=== PATIENT | male | born 1980 | race Caucasian/White ===

== ENCOUNTER → 2018-06-04 09:38 | Outpatient (CLI) | payer MEDICARE, MEDICAID, SELFPAY ==
--- NOTE | 2018-06-04 | DI.MRI.S_ITS ---
PROCEDURE: MR KNEE LT WO CON INDICATIONS: Left knee pain and swelling with decreased range of motion TECHNIQUE: Noncontrast sagittal PD fast spin echo and STIR, sagittal 3-D FLASH with fat saturation; coronal T1 spin echo and PD fast spin echo with fat saturation, and axial PD fast spin echo with fat saturation through the knee. COMPARISON: None. FINDINGS: Image quality: There is magnetic susceptibility artifact secondary to patient's postsurgical changes. Menisci: The medial meniscus is diminutive in appearance likely related to prior partial meniscectomy. There is mild radial tearing along the free edge in the remnant posterior horn as well as a small tear along the superior articular surface in the remnant anterior horn. The lateral meniscus demonstrates a complex longitudinal tear which extends to the superior articular surface and free edge in the body with intrasubstance extension into the anterior horn. Cruciate ligaments: There are postsurgical changes status post prior ACL reconstruction. The ACL graft appears intact. There is a small amount of intermediate signal intensity soft tissue adjacent to the graft distally compatible with arthrofibrosis. The posterior cruciate ligament appears intact. Medial structures: The medial collateral ligament appears intact. The semimembranosus tendon insertions and meniscocapsular junction appear intact. Visualized portions of the pes anserinus tendons appear intact without associated bursal fluid collections. Lateral structures: The lateral collateral ligament, long and short heads of the biceps femoris tendon appear intact. The popliteus tendon appears intact. Iliotibial band appears normal. Anterior structures: There is a defect within the calyx and then centrally consistent with prior harvesting of the ACL graft. The remnant patella tendon appears intact with thickening distally. The quadriceps tendon appears intact. Patellar alignment is normal. No femoral trochlear dysplasia or ventral trochlear prominence. Bones and cartilage: No definite bone marrow contusions or fractures. There is extensive magnetic susceptibly artifact within the distal femur and proximal tibia along the surgical tracts. There is mild osteophytosis. In the medial compartment, there is mild to moderate overall cartilage thinning with chondral fissuring along the posterior articular surface of the medial tibial plateau associated with foci of subchondral edema. There is chondral fraying involving greater than 50% of the cartilage along the posterior medial femoral condyle. In the lateral compartment, there is mild superficial chondral fissuring. In the patellofemoral compartment, there is mild superficial chondral fraying also noted. Joint space: There is physiologic knee joint fluid. No Aparicio's cyst. Normal appearing synovial plicae are incidentally noted. IMPRESSION: 1. Postsurgical changes status post ACL reconstruction with intact appearance of the graft. A small amount of soft tissue is noted along the graft distally suggestive of arthrofibrosis. 2. Jqfo-ka-zlcbeudd osteoarthritic changes including areas of chondral fissuring in the medial compartment with subchondral edema. 3. Postsurgical changes status post partial medial meniscectomy with mild tearing in the remnant medial meniscus as described. There is also longitudinal tearing in the lateral meniscus. Dictated by: True Rene M.D. on 06/04/2018 at 17:17 Approved by: True Rene M.D. on 06/04/2018 at 17:24
--- NOTE | 2018-06-04 10:08 | DI.CT.S_ITS ---
PROCEDURE: CT SINUS SCREEN WO CON INDICATIONS: Chronic sinusitis TECHNIQUE: Noncontrast 3.0 mm axial images acquired from the frontal sinuses to the mid-sella, with coronal and sagittal reformats. For radiation dose reduction, the following was used: automated exposure control, adjustment of mA and/or kV according to patient size. COMPARISON: None. FINDINGS: Image quality: Excellent. Mild mucosal thickening noted in the right maxillary sinus. Small right maxillary sinus mucous retention cyst versus polyp is noted. The estimated units are patent. No air-fluid levels are identified. No bony thickening, bone remottling or osseous erosive changes. Nasal septum is deviated to the left. No ade bullosa or paradoxical turbinates. Type II cribriform plate is noted. No variance in the ethmoid roof anatomy. No frontal recess cells. The anterior ethmoid artery notches are protected bilaterally. IMPRESSION: Mild right maxillary sinus mucosal thickening. Small right maxillary sinus mucus retention cyst. Dictated by: Tania Moore MD, PhD on 06/04/2018 at 11:52 Approved by: Tania Moore MD, PhD on 06/04/2018 at 11:54
== END ==
PROVIDERS: Family Provider Orthopaedic Surgery; PCP Family Medicine; Visit Provider Family Medicine
DX: J32.9 Chronic sinusitis, unspecified (principal); J34.1 Cyst and mucocele of nose and nasal sinus; M17.12 Unilateral primary osteoarthritis, left knee; S83.272A Complex tear of lateral meniscus, current injury, left knee, initial encounter; S83.242A Other tear of medial meniscus, current injury, left knee, initial encounter; M25.562 Pain in left knee
CPT/HCPCS: 70486; 73721

== ENCOUNTER → 2018-06-18 12:28 | Outpatient (CLI) | payer MEDICARE, MEDICAID, SELFPAY ==
[2018-06-18 15:21] LABS: Add Manual Diff / Slide Review NO; Basophils Percent Auto 0.8 % (0-2); Hematocrit 44.6 % (41-53); Hemoglobin 15.3 g/dL (13.5-17.5); Lymphocytes Percent Auto 36.8 % (25-40); Mean Corpuscular HGB Conc 34.2 % (30-36); Mean Corpuscular Hemoglobin 30.9 PG (26-34); Mean Corpuscular Volume 90.1 fL (80-100); Monocytes Percent Auto 7.4 % (3-14); Neutrophils Absolute Auto 2600 /uL (3000-5900); Platelet Count 184 X10^3/uL (150-400); Red Blood Cell Count 4.95 X10^6/uL (4.5-5.9); Red Cell Distribution Width 12.6 % (11.6-14.8); White Blood Cell Count 4.8 X10^3/uL (4.5-11.0)
[2018-06-18 15:24] LABS: Alanine Aminotransferase 45 IU/L (21-72); Albumin 4.7 g/dL (3.5-5.0); Albumin Globulin Ratio 1.6 (1.0-2.8); Alkaline Phosphatase 64 U/L (38-126); Aspartate Aminotransferase 45 IU/L (17-59); BUN Creatinine Ratio 12.9 (6-22); Bilirubin Total 0.9 mg/dL (0.2-1.3); Blood Urea Nitrogen 9 mg/dL (9-20); Calcium 9.6 mg/dL (8.4-10.2); Carbon Dioxide 25 mmol/L (22-32); Chloride 105 mmol/L (98-107); Estimated Glomerular Filt Rate > 60.0 mL/min (>60); Glucose 90 mg/dL (70-100); HEMOLYSIS < 15 (0-50); Sodium 142 mmol/L (137-145); Total Protein 7.7 g/dL (6.3-8.2)
[2018-06-18 15:53] LABS: TSH w/ Reflex to FT4 1.67 uIU/mL (0.47-4.68)
== END ==
PROVIDERS: Family Provider Orthopaedic Surgery; PCP Family Medicine; Visit Provider Family Medicine
DX: R25.1 Tremor, unspecified (principal)
CPT/HCPCS: 36415; 80053; 84443; 85025

== ENCOUNTER 2018-07-08 10:34 | Emergency (ER) | payer MEDICARE, MEDICAID, SELFPAY ==
[2018-07-08 10:53] VITALS: BP 135/86; PULSE 72; RESP 18; TEMP 36.5; O2SAT 97
--- NOTE | 2018-07-08 11:50 | DI.RAD.S_ITS ---
PROCEDURE: XR ANKLE LT MIN 3V INDICATIONS: left ankle pain, partial weight bearing. recent cortisone injection TECHNIQUE: 3 views of the ankle were acquired. COMPARISON: [facility], , ANKLE 3 VIEWS LEFT, 10/18/2015, 14:37. FINDINGS: Bones: No fractures or dislocations. Ankle mortise is normally aligned. No suspicious bony lesions. Soft tissues: No tibiotalar joint effusion. Achilles tendon appears normal. IMPRESSION: No acute fractures or dislocations. Dictated by: Corey Oviedo M.D. on 07/08/2018 at 12:11 Approved by: Corey Oviedo M.D. on 07/08/2018 at 12:12
--- NOTE | 2018-07-08 11:55 | PC.NURSE ---
Pt reports receiving cortisone shot into ankle yesterday. reports increased pain in joint with any movement. Pt reports this morning, unable to bare weight on foot. Any movement or touching causes increase in pain.
--- NOTE | 2018-07-08 12:19 | ED.LOWEXIN ---
HPI - Extremity Injury (Lower) <YESSICA Castro - Last Filed: 07/08/18 16:10> General Chief Complaint: Extremity Injury, Lower Stated Complaint: CORITZONE IN ANKLE,CAN'T BEAR WEIGHT Time Seen by Provider: 07/08/18 12:03 Source: patient Mode of arrival: ambulatory Limitations: no limitations History of Present Illness HPI Narrative: Patient presents with chief complaint of left ankle pain. He states he had a left ankle steroid injection by Dr. Carrera yesterday. He states that after his injection he walked about 4 miles. He had pain last night, and then states his pain worsened this morning. He denies any numbness or tingling. He states he has baseline nerve problems, but has not noted anything different. He has not tried anything for pain at home. He later states that he may or may not have? taken ibuprofen x2. He denies any fevers, nausea, vomiting or diarrhea. He states his pain states the ankle. He states it hurts to move his ankle but he can do it. Related Data Home Medications Medication Instructions Recorded Confirmed ibuprofen [Children's Ibuprofen] #0 02/25/18 06/18/18 Allergies Allergy/AdvReac Type Severity Reaction Status Date / Time Benzodiazepines Allergy Mild DELUSIONS Verified 07/08/18 10:58 [BENZODIAZEPINES] paliperidone [PALIPERIDONE] Allergy Mild DYSRTHYMIA Verified 07/08/18 10:58 adhesive [ADHESIVE] Allergy Unknown ask before Verified 07/08/18 10:58 using any kind of tape buspirone [BUSPIRONE] Allergy Unknown Verified 07/08/18 10:58 propoxyphene [From DARVON] Allergy Unknown Verified 07/08/18 10:58 quetiapine [From SEROQUEL] Allergy Unknown Verified 07/08/18 10:58 trazodone [TRAZODONE] Allergy Unknown Verified 07/08/18 10:58 NSAIDS (Non-Steroidal AdvReac Mild STOMACH Verified 07/08/18 10:58 Anti-Inflamma ISSUES [NSAIDS (NON-STEROIDAL ANTI-INFLAMMA] DILUADID Allergy Unknown Uncoded 07/08/18 10:58 Review of Systems <YESSICA Castro - Last Filed: 07/08/18 16:10> Review of Systems GENERAL: Denies chills, fatigue, malaise, fever, sweats. HEENT: Denies sinus pain, ear pain, sore throat, difficulty swallowing, dizziness. RESPIRATORY: Denies dyspnea, cough, wheezing, hemoptysis, sputum. CARDIOVASCULAR: Denies chest pain, palpitations, orthopnea, edema, GASTROINTESTINAL: Denies nausea, vomiting, abdominal pain, diarrhea, constipation, melena. : Denies dysuria, frequency, incontinence, hematuria, urinary retention. MUSCULOSKELETAL: See HPI SKIN: Denies rash, skin lesions, or other NEUROLOGIC: Denies weakness, headache, numbness, change in speech, confusion, seizures, incoordination. PSYCHIATRIC: No concerning psychosocial issues. 12 point review of systems is negative except for those stated above Exam <Tammy Lombardi, ASSISTANT GENERAL MANAGER-BC - Last Filed: 07/08/18 16:10> Narrative Exam Narrative: GENERAL: This is a well-nourished, well-developed patient, lying on stretcher. HEAD: Atraumatic. Normocephalic. No temporal or scalp tenderness. EYES: Pupils equal round and reactive. Extraocular motions intact. No scleral icterus. No injection or drainage. ENT: Nose without bleeding, purulent drainage or septal hematoma. Airway patent. NECK: Trachea midline. No JVD or lymphadenopathy. Supple, nontender, no meningeal signs. CARDIOVASCULAR: Regular rate and rhythm without murmurs, gallops, or rubs. RESPIRATORY: Clear to auscultation. Breath sounds equal bilaterally. No wheezes, rales, or rhonchi. No cough exam GASTROINTESTINAL: Abdomen soft, non-tender, nondistended. No hepato-splenomegaly, or palpable masses. No guarding. EXTREMITIES: Left ankle generalized pain to palpation. +2 pedal pulses. Decreased range of motion all babin. Left foot is warm. Capillary refill less than 2 sec all toes. BACK: Nontender without deformity or crepitance. No flank tenderness. NEURO: AOx3. SKIN: No rash or erythema. Bandages on left foot clean dry and intact. Initial Vital Signs Initial Vital Signs: Vital Signs Temperature 97.7 F 07/08/18 10:53 Pulse Rate 72 07/08/18 10:53 Respiratory Rate 18 07/08/18 10:53 Blood Pressure 135/86 H 07/08/18 10:53 Pulse Oximetry 97 07/08/18 10:53 <Yeni Carlisle DO - Last Filed: 07/09/18 10:34> Initial Vital Signs Initial Vital Signs: Vital Signs Temperature 97.7 F 07/08/18 10:53 Pulse Rate 72 07/08/18 10:53 Respiratory Rate 18 07/08/18 10:53 Blood Pressure 135/86 H 07/08/18 10:53 Pulse Oximetry 97 07/08/18 10:53 Course <YESSICA Castro - Last Filed: 07/08/18 16:10> Orders Ordered: Discontinued Medications Ketorolac Tromethamine (Toradol) 60 mg IM NOW ONE Stop: 07/08/18 12:19 Last Admin: 07/08/18 12:22 Dose: 60 mg Reevaluation(s) Reevaluation #1: Patient is lying in bed. States his pain is improved after the Toradol. Time: 13:45 Vital Signs - 8 hr 07/08/18 10:53 07/08/18 13:34 Temperature 97.7 F Pulse Rate 72 72 Respiratory Rate 18 Blood Pressure 135/86 H Blood Pressure [Right Arm] 109/61 Pulse Oximetry 97 97 <Yeni Carlisle DO - Last Filed: 07/09/18 10:34> Orders Ordered: Discontinued Medications Ketorolac Tromethamine (Toradol) 60 mg IM NOW ONE Stop: 07/08/18 12:19 Last Admin: 07/08/18 12:22 Dose: 60 mg Vital Signs - 8 hr 07/08/18 10:53 07/08/18 13:34 Temperature 97.7 F Pulse Rate 72 72 Respiratory Rate 18 Blood Pressure 135/86 H Blood Pressure [Right Arm] 109/61 Pulse Oximetry 97 97 MDM - Extremity Injury (Lower) <YESSICA Castro - Last Filed: 07/08/18 16:10> Differential Diagnosis Likely ankle sprain and strain, ankle fracture and other (infection) Imaging Data left ankle xray: Radiologist's impression: [address] [address] XRay Report Signed Patient: True Bojorquez MR#: [id number] : 1980 Acct:[id number] Age/Sex: 37 / M Date of Service: 07/08/18 Loc: ED Accession Number: [id number] Procedure: XR ankle LT min 3V Ordering Provider: Tammy Lombardi-BC PROCEDURE: XR ANKLE LT MIN 3V INDICATIONS: left ankle pain, partial weight bearing. recent cortisone injection TECHNIQUE: 3 views of the ankle were acquired. COMPARISON: [facility], , ANKLE 3 VIEWS LEFT, 10/18/2015, 14:37. FINDINGS: Bones: No fractures or dislocations. Ankle mortise is normally aligned. No suspicious bony lesions. Soft tissues: No tibiotalar joint effusion. Achilles tendon appears normal. IMPRESSION: No acute fractures or dislocations. Dictated by: Corey Oviedo M.D. on 07/08/2018 at 12:11 Approved by: Corey Oviedo M.D. on 07/08/2018 at 12:12 MDM Narrative Medical decision making narrative: Patient presents with left ankle pain after having cortisone injection yesterday. He walked 4 miles after his injection and comes to the emergency department pain. He has no signs of infection, stable vital signs, and his pain responded to Toradol. I discussed with him rest ice compression elevation. I discussed with him follow up with primary care or Orthopedics if needed. I did discuss that cortisone injections can worsened pain for the 1st 24-48 hours and that strenuous activity was recommended to be avoided. He had no questions or concerns upon discharge. I discussed follow-up if fever nausea vomiting diarrhea or signs of infection. Discharge Plan Departure Patient Disposition: Home Clinical Impression: Acute left ankle pain Discharge Date/Time: 07/08/18 13:50 Interventions: ED Discharge Assessment Last Done: 07/08/18 13:46 Instructions: How to Use Crutches, How To Perform RICE (Rest, Ice, Compress, Elevate), DI for Ankle Pain, Joint Injection Activity Restrictions/Additional Instructions: Your x-ray of your ankle showed no fracture or problems. We treated her pain with Toradol injection in the emergency department. I would like you to rest, ice and elevate her ankle. I have given you information had use crutches, use ice, generalized ankle pain and instructions regarding joint injections. The instructions regarding joint injections discussed avoiding strenuous activity for 24-48 hours after your injection. It also discusses how your pain may worsen and the 1st 24-48 hours after the injection. I think he may have overdone it yesterday with walking after the shot. I would like you to follow up with primary care provider if worsening or no improvement as well as with orthopedics as previously arranged. Come back to the emergency department for any fever, swelling of your ankle or signs of infection. Prescriptions: No Action ibuprofen [Children's Ibuprofen] 100 mg/5 mL Suspension Qty: 0 RF: 0 Referrals: Maxim Arthur MD [Primary Care Provider] - <Yein Carlisle DO - Last Filed: 07/09/18 10:34> Cosign ED Attending Sultanaature Attestation: I was immediately available in the department for consultation. Documentation has been reviewed. I agree with assessment and plan.
[2018-07-08] MEDS: KETOROLAC 60 MG/2 ML VIAL IM (12:22)
--- NOTE | 2018-07-08 12:27 | ED_ITS ---
HPI - Extremity Injury (Lower) <YESSICA Castro - Last Filed: 07/08/18 16:10> General Chief Complaint: Extremity Injury, Lower Stated Complaint: CORITZONE IN ANKLE,CAN'T BEAR WEIGHT Time Seen by Provider: 07/08/18 12:03 Source: patient Mode of arrival: ambulatory Limitations: no limitations History of Present Illness HPI Narrative: Patient presents with chief complaint of left ankle pain. He states he had a left ankle steroid injection by Dr. Carrera yesterday. He states that after his injection he walked about 4 miles. He had pain last night , and then states his pain worsened this morning. He denies any numbness or tingling. He states he has baseline nerve problems, but has not noted anything different. He has not tried anything for pain at home. He later states that he may or may not have? taken ibuprofen x2. He denies any fevers, nausea, vomiting or diarrhea. He states his pain states the ankle. He states it hurts to move his ankle but he can do it. Related Data Home Medications Medication Instructions Recorded Confirmed ibuprofen [Children's Ibuprofen] #0 02/25/18 06/18/18 Allergies Allergy/AdvReac Type Severity Reaction Status Date / Time Benzodiazepines Allergy Mild DELUSIONS Verified 07/08/18 10:58 [BENZODIAZEPINES] paliperidone [PALIPERIDONE] Allergy Mild DYSRTHYMIA Verified 07/08/18 10:58 adhesive [ADHESIVE] Allergy Unknown ask before Verified 07/08/18 10:58 using any kind of tape buspirone [BUSPIRONE] Allergy Unknown Verified 07/08/18 10:58 propoxyphene [From DARVON] Allergy Unknown Verified 07/08/18 10:58 quetiapine [From SEROQUEL] Allergy Unknown Verified 07/08/18 10:58 trazodone [TRAZODONE] Allergy Unknown Verified 07/08/18 10:58 NSAIDS (Non-Steroidal AdvReac Mild STOMACH Verified 07/08/18 10:58 Anti-Inflamma ISSUES [NSAIDS (NON-STEROIDAL ANTI-INFLAMMA] DILUADID Allergy Unknown Uncoded 07/08/18 10:58 Review of Systems <YESSICA Castro - Last Filed: 07/08/18 16:10> Review of Systems GENERAL: Denies chills, fatigue, malaise, fever, sweats. HEENT: Denies sinus pain, ear pain, sore throat, difficulty swallowing, dizziness. RESPIRATORY: Denies dyspnea, cough, wheezing, hemoptysis, sputum. CARDIOVASCULAR: Denies chest pain, palpitations, orthopnea, edema, GASTROINTESTINAL: Denies nausea, vomiting, abdominal pain, diarrhea, constipation, melena. : Denies dysuria, frequency, incontinence, hematuria, urinary retention. MUSCULOSKELETAL: See HPI SKIN: Denies rash, skin lesions, or other NEUROLOGIC: Denies weakness, headache, numbness, change in speech, confusion, seizures, incoordination. PSYCHIATRIC: No concerning psychosocial issues. 12 point review of systems is negative except for those stated above Exam <Tammy Lombardi, CLINICAL DOCUMENTATION SPECIALIST-BC - Last Filed: 07/08/18 16:10> Narrative Exam Narrative: GENERAL: This is a well-nourished, well-developed patient, lying on stretcher. HEAD: Atraumatic. Normocephalic. No temporal or scalp tenderness. EYES: Pupils equal round and reactive. Extraocular motions intact. No scleral icterus. No injection or drainage. ENT: Nose without bleeding, purulent drainage or septal hematoma. Airway patent. NECK: Trachea midline. No JVD or lymphadenopathy. Supple, nontender, no meningeal signs. CARDIOVASCULAR: Regular rate and rhythm without murmurs, gallops, or rubs. RESPIRATORY: Clear to auscultation. Breath sounds equal bilaterally. No wheezes , rales, or rhonchi. No cough exam GASTROINTESTINAL: Abdomen soft, non-tender, nondistended. No hepato-splenomegaly , or palpable masses. No guarding. EXTREMITIES: Left ankle generalized pain to palpation. +2 pedal pulses. Decreased range of motion all babin. Left foot is warm. Capillary refill less than 2 sec all toes. BACK: Nontender without deformity or crepitance. No flank tenderness. NEURO: AOx3. SKIN: No rash or erythema. Bandages on left foot clean dry and intact. Initial Vital Signs Initial Vital Signs: Vital Signs Temperature 97.7 F 07/08/18 10:53 Pulse Rate 72 07/08/18 10:53 Respiratory Rate 18 07/08/18 10:53 Blood Pressure 135/86 H 07/08/18 10:53 Pulse Oximetry 97 07/08/18 10:53 <Yeni Carlisle DO - Last Filed: 07/09/18 10:34> Initial Vital Signs Initial Vital Signs: Vital Signs Temperature 97.7 F 07/08/18 10:53 Pulse Rate 72 07/08/18 10:53 Respiratory Rate 18 07/08/18 10:53 Blood Pressure 135/86 H 07/08/18 10:53 Pulse Oximetry 97 07/08/18 10:53 Course <YESSICA Castro - Last Filed: 07/08/18 16:10> Orders Ordered: Discontinued Medications Ketorolac Tromethamine (Toradol) 60 mg IM NOW ONE Stop: 07/08/18 12:19 Last Admin: 07/08/18 12:22 Dose: 60 mg Reevaluation(s) Reevaluation #1: Patient is lying in bed. States his pain is improved after the Toradol. Time: 13:45 Vital Signs - 8 hr 07/08/18 10:53 07/08/18 13:34 Temperature 97.7 F Pulse Rate 72 72 Respiratory Rate 18 Blood Pressure 135/86 H Blood Pressure [Right Arm] 109/61 Pulse Oximetry 97 97 <Yeni Carlisle DO - Last Filed: 07/09/18 10:34> Orders Ordered: Discontinued Medications Ketorolac Tromethamine (Toradol) 60 mg IM NOW ONE Stop: 07/08/18 12:19 Last Admin: 07/08/18 12:22 Dose: 60 mg Vital Signs - 8 hr 07/08/18 10:53 07/08/18 13:34 Temperature 97.7 F Pulse Rate 72 72 Respiratory Rate 18 Blood Pressure 135/86 H Blood Pressure [Right Arm] 109/61 Pulse Oximetry 97 97 MDM - Extremity Injury (Lower) <YESSICA Castro - Last Filed: 07/08/18 16:10> Differential Diagnosis Likely ankle sprain and strain, ankle fracture and other (infection) Imaging Data left ankle xray: Radiologist's impression: [address] [address] XRay Report Signed Patient: True Bojorquez MR#: [id number] : 1980 Acct:[id number] Age/Sex: 37 / M Date of Service: 07/08/18 Loc: ED Accession Number: [id number] Procedure: XR ankle LT min 3V Ordering Provider: Tammy Lombardi-BC PROCEDURE: XR ANKLE LT MIN 3V INDICATIONS: left ankle pain, partial weight bearing. recent cortisone injection TECHNIQUE: 3 views of the ankle were acquired. COMPARISON: [facility], , ANKLE 3 VIEWS LEFT, 10/18/2015, 14:37. FINDINGS: Bones: No fractures or dislocations. Ankle mortise is normally aligned. No suspicious bony lesions. Soft tissues: No tibiotalar joint effusion. Achilles tendon appears normal. IMPRESSION: No acute fractures or dislocations. Dictated by: Corey Oviedo M.D. on 07/08/2018 at 12:11 Approved by: Corey Oviedo M.D. on 07/08/2018 at 12:12 MDM Narrative Medical decision making narrative: Patient presents with left ankle pain after having cortisone injection yesterday. He walked 4 miles after his injection and comes to the emergency department pain. He has no signs of infection, stable vital signs, and his pain responded to Toradol. I discussed with him rest ice compression elevation. I discussed with him follow up with primary care or Orthopedics if needed. I did discuss that cortisone injections can worsened pain for the 1st 24-48 hours and that strenuous activity was recommended to be avoided. He had no questions or concerns upon discharge. I discussed follow-up if fever nausea vomiting diarrhea or signs of infection. Discharge Plan Departure Patient Disposition: Home Clinical Impression: Acute left ankle pain Discharge Date/Time: 07/08/18 13:50 Interventions: ED Discharge Assessment Last Done: 07/08/18 13:46 Instructions: How to Use Crutches, How To Perform RICE (Rest, Ice, Compress, Elevate), DI for Ankle Pain, Joint Injection Activity Restrictions/Additional Instructions: Your x-ray of your ankle showed no fracture or problems. We treated her pain with Toradol injection in the emergency department. I would like you to rest, ice and elevate her ankle. I have given you information had use crutches, use ice, generalized ankle pain and instructions regarding joint injections. The instructions regarding joint injections discussed avoiding strenuous activity for 24-48 hours after your injection. It also discusses how your pain may worsen and the 1st 24-48 hours after the injection. I think he may have overdone it yesterday with walking after the shot. I would like you to follow up with primary care provider if worsening or no improvement as well as with orthopedics as previously arranged. Come back to the emergency department for any fever, swelling of your ankle or signs of infection. Prescriptions: No Action ibuprofen [Children's Ibuprofen] 100 mg/5 mL Suspension Qty: 0 RF: 0 Referrals: Maxim Arthur MD [Primary Care Provider] - <Yeni Carlisle DO - Last Filed: 07/09/18 10:34> Cosign ED Attending Sultanaature Attestation: I was immediately available in the department for consultation. Documentation has been reviewed. I agree with assessment and plan.
[2018-07-08 13:34] VITALS: BP 109/61; PULSE 72; O2SAT 97
== END 2018-07-08 13:50 | disposition home or self-care (01) ==
PROVIDERS: Emergency Provider Nurse Practitioner Family; Family Provider Orthopaedic Surgery; PCP Family Medicine
DX: M25.572 Pain in left ankle and joints of left foot (principal)
CPT/HCPCS: 73610; 96372; 99282; 99283; J1885

== ENCOUNTER → 2018-08-17 10:42 | Outpatient (CLI) | payer MEDICARE, MEDICAID, SELFPAY ==
--- NOTE | 2018-08-17 | DI.MRI.S_ITS ---
PROCEDURE: MR ANKLE LT WO CON INDICATIONS: LATERAL LEFT ANKLE PAIN TECHNIQUE: Noncontrast sagittal T1 spin echo and T2 fast spin echo with fat saturation, axial proton density fast spin echo and T2 fast spin echo with fat saturation, coronal T1 spin echo and T2 fast spin echo with fat saturation through the ankle/hindfoot. COMPARISON: [facility], CR, XR ANKLE LT MIN 3V, 07/08/2018, 11:55. FINDINGS: Image quality: Diagnostic. Bones and joints: There is no acute fracture or dislocation identified involving the osseous structures of the the left midfoot or hindfoot. There mild degenerative changes identified at the distal tibiofibular syndesmosis with reactive marrow edema noted involving the adjacent fibula. Minimal degenerative cystic changes noted within the region of the sinus tarsi involving the talus. There mild degenerative changes of the talonavicular joint. No significant joint effusions are evident. The ankle mortise is well-maintained with an osteochondral defect of the tibial plafond toward the talar dome. Medial structures: The deltoid ligament is intact. The spring ligament is also noted to be intact. The tibialis posterior tendon is within normal limits with the exception of a small amount of fluid contained within its corresponding tendon sheath. The flexor hallucis longus and flexor digitorum longus tendons are intact. The posterior tibial nerve to the region of the tarsal tunnel appears to be within normal limits. Lateral structures: The anterior and posterior distal tibiofibular ligaments are mildly heterogeneous and irregular, suggesting scarring from previous partial thickness injury. The anterior and posterior talofibular ligaments are intact. Edema about the posterior talofibular ligament is noted. The calcaneofibular ligament is not well-seen, but probably intact. There is a moderate flattening identified involving the peroneus brevis tendon along the posterior margin of the lateral malleolus with a short segment split longitudinal tear just beyond the tip of the lateral malleolus with corresponding tendinopathy. Mild increased signal is noted involving the peroneus longus tendon without significant tendon. Incidental note is made of an accessory peroneus quartus muscle/tendon, which is intact and normally inserts onto the peroneal tubercle of the lateral calcaneus. Anterior structures: The tibialis anterior, extensor hallucis longus, and extensor digitorum longus tendons appear intact. Posterior and plantar structures: Achilles tendon is intact. Medial and lateral bands of the plantar fascia are of normal thickness. IMPRESSION: 1. Short segment longitudinal split tear and tendinopathy of the peroneus brevis tendon. 2. Mild peroneus longus tendinopathy. 3. Posterior talofibular ligament sprain. 4. Irregularity of the syndesmotic ligaments is suggestive of scarring from previous injury. No full-thickness tears are evident. 5. Mild degenerative changes of the hindfoot joints, as described. 6. Possible mild tibialis posterior tenosynovitis. Dictated by: Jim Retana M.D. on 08/17/2018 at 11:24 Approved by: Jim Retana M.D. on 08/17/2018 at 11:29
== END ==
PROVIDERS: PCP Family Medicine; Visit Provider Orthopaedic Surgery Foot and Ankle Surgery
DX: S96.812A Strain of other specified muscles and tendons at ankle and foot level, left foot, initial encounter (principal); S93.492A Sprain of other ligament of left ankle, initial encounter; M19.072 Primary osteoarthritis, left ankle and foot; M25.572 Pain in left ankle and joints of left foot
CPT/HCPCS: 73721

== ENCOUNTER → 2018-09-16 14:05 | Outpatient (CLI) | payer MEDICARE, MEDICAID, SELFPAY ==
[2018-09-16 14:37] LABS: Add Manual Diff / Slide Review NO; Basophils Percent Auto 0.9 % (0-2); Eosinophils Percent Auto 3.5 % (2-4); Hematocrit 42.3 % (41-53); Hemoglobin 14.3 g/dL (13.5-17.5); Lymphocytes Percent Auto 38.7 % (25-40); Mean Corpuscular HGB Conc 33.8 % (30-36); Mean Corpuscular Hemoglobin 30.5 PG (26-34); Mean Corpuscular Volume 90.1 fL (80-100); Monocytes Percent Auto 7.9 % (3-14); Neutrophils Absolute Auto 1900 /uL (3000-5900); Platelet Count 198 X10^3/uL (150-400); Red Cell Distribution Width 12.8 % (11.6-14.8)
[2018-09-16 15:10] LABS: Alanine Aminotransferase 35 IU/L (21-72); Albumin 4.1 g/dL (3.5-5.0); Albumin Globulin Ratio 1.6 (1.0-2.8); Alkaline Phosphatase 63 U/L (38-126); Aspartate Aminotransferase 30 IU/L (17-59); Bilirubin Total 1.2 mg/dL (0.2-1.3); Bilirubin Unconjugated 1.2 mg/dL (0.0-1.1); Globulin 2.6 g/dL (1.7-4.1); HEMOLYSIS < 15 (0-50); Total Protein 6.7 g/dL (6.3-8.2)
== END ==
PROVIDERS: Family Provider Student in an Organized Health Care Education/Training Program; PCP Student in an Organized Health Care Education/Training Program; Visit Provider Orthopaedic Surgery
DX: K76.0 Fatty (change of) liver, not elsewhere classified (principal)
CPT/HCPCS: 36415; 80076; 85025

== ENCOUNTER 2018-12-03 09:43 | Day surgery (SDC) | payer MEDICARE, MEDICAID, SELFPAY ==
[2018-11-29 12:30] VITALS: BMI 30.2
[2018-12-03] VITALS (9 sets, daily range): BP systolic 104–127; BP diastolic 63–79; PULSE 66–86; RESP 12–16; TEMP 36.3–36.5; O2SAT 94–98; BMI 30.2
--- NOTE | 2018-12-03 10:37 | PM.PREOP ---
Pre-operative Note Interval Note History & Physical reviewed/Exam performed by Physician: Yes Changes to H&P: No
[2018-12-03] MEDS: LACTATED RINGERS 1,000 ML 42 ML IV (10:46)
[2018-12-03] MEDS: CEFAZOLIN 2 GM/100 ML FROZ.PIGGY IV (11:00)
--- NOTE | 2018-12-03 11:33 | SUR.OPER ---
Supine on padded OR bed, head on pillow, arms secured on padded arm boards at <90 degrees abduction, legs uncrossed, safety belt at abdomen, left hip roll, left leg on padded stirrup secured with an lakisha, right leg taped over blankets.
[2018-12-03] MEDS: BUPIVACAINE 0.5% W/ EPI (PF) VIAL 30 ML INJ (13:25)
[2018-12-03] MEDS: fentaNYL 100 MCG/2 ML INJ IV (13:40)
--- NOTE | 2018-12-03 13:40 | PM.OP.1 ---
Operative Date/Time/Diagnoses Date of procedure: 12/03/18 Time of procedure: 11:30 Pre-op diagnosis: 1. impingement syndrome left ankle m25.872 2. Tear peroneus brevis tendon, left s86.312d 3. 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 Peroneus quartus tendon. 5. Peroneal tenosynovitis) Procedure & Clinicians Procedure: 1. Arthroscopy, ankle, debridement, limited, left CPT code 51754 2. Repair, flexor tendon, leg, primary without graft, peroneus brevis tendon CPT code 00841 3. Excision peroneus quartus tendon debridement peroneal tendons/tenosynovitis Same procedure as scheduled: Yes Indications: The patient is a 38-year-old male with a history of left ankle injury and chronic ankle pain refractory to conservative treatments. The patient has had extensive nonoperative treatment including bracing physical therapy, injections. Has a longitudinal split tear of the peroneus brevis tendon on MRI as well as degenerative change within the syndesmosis and scarring. He also appears to have a baskets ligament as well as peroneal tendinosis and a peroneus quartus tendon it that may be causing symptomatic crowding. He has no evidence of gross instability on stress testing. We discussed treatment involving exploration repair of his peroneal tendons as well as arthroscopic surgery to further evaluate his joint debride the syndesmotic area or other causes of soft tissue impingement. Also discussed possible fixation of the syndesmosis if this was found unstable intraoperatively. Patient understands and agrees with the plan. The risks benefits and alternatives to procedure were discussed with the patient detail these include but are not limited to infection, persistence of pain, inability to return to previous level of activity, wound healing problems, hardware failure, need for further surgery, DVT, pulmonary embolism, cardiac and pulmonary complications of general anesthesia up to and including . Informed consent was signed in the office. The patient understands that this would require a 4-6 weeks of nonweightbearing post surgery and that for the 1st 2 weeks after surgery he should elevate above the heart level. He has no history of blood clots or increased risk factors are 4 postoperatively he will have DVT prophylaxis with 325 mg of aspirin daily during his nonweightbearing. Surgeon: Rubi Santoro Click Yes if Unassisted: Yes Anesthesia Type: General and Local Operative Notes Findings: Arthroscopic findings: My evaluation demonstrated good condition of the tibial talar articular surfaces with no evidence of osteochondral lesions. There is mild synovitis anterior laterally and the presence of a low-lying ATFL consistent with the Willard's ligament. This was partially debrided arthroscopically and then finished with a subcutaneous dissection through the lateral peroneal open approach. Additionally probe was placed into the syndesmosis this did not pass through and there is no evidence of instability on intraoperative syndesmosis stress testing. Open peroneal tendon exploration findings: Peroneal sheath was opened her significant tenosynovitis along the peroneal tendons the peroneus longus was in relatively good condition with minimal tendinosis and no ana tears. Mild tenosynovitis was debrided. Additionally the peroneus brevis was found to have a longitudinal split tear at the level of the lateral malleolus that was approximately 3 cm in length and split the tendon roughly in 1/3 and 2/3rds segments. The smaller area of the tear was quite degenerative and was trimmed out and the remainder of the peroneus brevis was then repaired trimmed and tubularized with a 4 0 Maxon suture. Additionally tenosynovitis was debrided and the low-lying muscle belly was debrided as well. There is additional peroneus quartus with a large low-lying muscle belly also present within the peroneal sheath this was felt to be contributing significantly to the patient's crowding and symptoms and therefore was excised. Closure Type: primary Specimen(s): none sent Implants & Drains: None Applied: other (Splint) Estimated Blood Loss (mL): 10 Blood products transfused: none Tourniquet time (min): 90 Procedure in detail: The patient was seen in the preoperative area site of surgery marked informed consent confirmed. The patient was then brought back to the operating room by the anesthesia team he was placed supine on the operative table and general anesthesia was administered. Well-padded thigh tourniquet was placed and all bony prominences were well padded. An SCD was placed on the contralateral leg. Left leg was placed in a well leg christy for the arthroscopy set up. Left lower extremity was then prepped and draped in standard sterile fashion, After 3 step prep. Formal time-out procedure was performed confirming the patient's side and site of surgery and administration of appropriate preoperative antibiotics within 30 min of incision. All were in agreement. Esmarch was used to exsanguinate the lower extremity and the tourniquet was raised to 250 mm of mercury and stayed there for 90 min. Bony landmarks were marked on to the ankle and the portal sites were established. The joint was insufflated with 15 cc of local anesthetic and the noninvasive distractor was set up. Sharp incision through the skin and was taken at the anterior medial portal site and then blunt dissection with a hemostat was used to enter the joint. The scope was then placed confirming intra-articular placement. Next portal site for the anterior lateral portal was established care was taken to palpate the superficial peroneal nerve and avoid this with the portal placement. First a needle was used to localize trajectory for the portal site then Again a sharp knife was used just through the skin and then a blunt hemostat was used to penetrate the joint. And the probe introduced. Diagnostic arthroscopy then took place. There was mild amount of synovitis primarily anterior laterally in the joint. There were no visualized osteochondral defects and the cartilage of the tibia and talus were in otherwise excellent condition. Diagnostic arthroscopy was used to confirm the integrity of the central dome medial shoulder and lateral dome and shoulder as well. There was noted to be avail of low lying ligamentous tissue anterior laterally consistent with a low lying anterior inferior tibial fibular ligament or Willard's ligament and with the synovitis in this area and the patient's symptoms of impingement of this was thought to be likely pathologic. Therefore the shaver was introduced to trim back the Willard's ligament of this was done arthroscopically and then checked and completed during the open approach as well. Next the syndesmosis was evaluated the probe was advanced to the tib-fib space but was not able to pass proximally or widened the joint. A manual stress exam was performed with visualization arthroscopically and no abnormal motion was noted therefore limited debridement of the syndesmosis and synovitic tissue was completed but no further stabilization was undertaken. At this point the instruments were removed from the joint and attention was turned to the open procedure. The leg was removed from the well leg christy and placed supine on the table. Attention was turned to the peroneal tendons. An approximately 10 cm curved incision was taken just posterior to the fibula proximal to distal. This was taken through the skin subcutaneous tissue. Careful flaps were developed. A super periosteal flap was also taken anteriorly over the fibula to the level of the lateral joint and a small arthrotomy was made again visualizing the anterolateral corner of the tibiotalar joint the remainder of the low-lying Willard's ligament was excised using a rongeur this allowed excellent visualization of the tibiotalar joint and no further impingement was visualized with ankle dorsiflexion and plantar flexion. Attention was returned the peroneal tendons. The peroneal tendon sheath was opened leaving careful tissue for repair on either side. This was opened and retracted exposing the peroneal tendons there was significant synovitis along the peroneal tendons and low-lying muscle bellies were demonstrated. Additionally there was a 3rd peroneal tendon peroneus quartus with a low-lying muscle belly that was found within the peroneal tendon sheath. The peroneus longus and peroneus brevis were evaluated. There is some minimal tendinosis of the peroneus longus but no tearing. There was a ana split longitudinal tear in the peroneus brevis tendon corresponding to the area of the lateral malleolus this was approximately 3 cm in length and divided the tendon into a 1/3 part and 2/3 part. The smaller 1/3 part was very tendinotic and frayed. Decision was made to excise this tear and the remainder of the tendon was trimmed and tubularized using a 4 0 Maxon suture that provided excellent the tubularization and repair. Tenosynovitis along all the tendons was trimmed as well as the low lying muscle bellies. Peroneus quartus was felt to be significant cause of stenosis within the groove and therefore was excised. This decompressed the groove very well. The peroneus brevis and longus were then relocated into the groove and the ankle was taken through range of motion. These did not dislocate and glided smoothly. Of note the sural nerve was visualized distally in the wound and protected throughout the case. The tourniquet was released hemostasis achieved. the wound was irrigated then closed in layers with 4 0 Maxon and 2 0 Maxon in the peroneal sheath. 4-0 Monocryl subcutaneously and 3 O nylon in the skin. Additionally 3 O nylon was used close the portal sites from the ankle arthroscopy. Sterile dressing with Xeroform, gauze, Webril, posterior and U slab splint was placed. The patient was awoken from anesthesia and taken to PACU in good condition there were no immediate complications from this procedure. Complications: none Condition: stable Disposition: PACU Plan for aftercare: Patient will be nonweightbearing on his left lower extremity he will elevate above the heart level for at least the 1st 2 weeks after surgery. The patient be nonweightbearing for 6 weeks. He will have oxycodone for pain medication. He will take aspirin 325 mg daily starting postop day 1 for DVT prophylaxis. Patient will follow up in 2 weeks for a wound check, and conversion to a boot.
[2018-12-03] MEDS: OXYCODONE IR 5 MG TABLET PO ×2 (13:59→14:39)
[2018-12-03] MEDS: ONDANSETRON 4 MG/2 ML INJ IV (14:35)
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
== END 2018-12-03 15:06 | disposition home or self-care (01) ==
PROVIDERS: Family Provider Student in an Organized Health Care Education/Training Program; PCP Student in an Organized Health Care Education/Training Program; Visit Provider Orthopaedic Surgery Foot and Ankle Surgery
PROC: (CPT 27658; principal; 2018-12-03 11:15)
DX: M25.872 Other specified joint disorders, left ankle and foot (principal); S86.312D Strain of muscle(s) and tendon(s) of peroneal muscle group at lower leg level, left leg, subsequent encounter; M25.372 Other instability, left ankle
CPT/HCPCS: 27658; 29897; J0690; J2405; J2704; J3010

== ENCOUNTER 2018-12-11 22:08 | Emergency (ER) | payer MEDICARE, MEDICAID, SELFPAY ==
[2018-12-11 22:20] VITALS: BP 153/83; PULSE 85; RESP 20; TEMP 36.6; O2SAT 98; BMI 30.9
--- NOTE | 2018-12-11 23:03 | PC.NURSE ---
Pt verbally contracted for safety. Pt reports chronic suididal thoughts but no intent of carrying them out. Dr Chand notified, pt moved to room 13.
--- NOTE | 2018-12-12 01:23 | DI.CT.S_ITS ---
PROCEDURE: CT HEAD/BRAIN WO CON INDICATIONS: headache, dizzy, visual change TECHNIQUE: Noncontrast 4.5 mm thick angled axial sections acquired from the foramen magnum to the vertex, with coronal and sagittal reformats. For radiation dose reduction, the following was used: automated exposure control, adjustment of mA and/or kV according to patient size. COMPARISON: [facility], CT, BRAIN W/O CONTRAST, 07/18/2012, 22:16. FINDINGS: Image quality: Excellent. CSF spaces: Basal cisterns are patent. No extra-axial fluid collections. Ventricles are normal in size and shape. Brain: No midline shift. No intracranial masses or hemorrhage. Keane-white matter interface is normal. Skull and face: Calvarium and visualized facial bones are intact, without suspicious lesions. Sinuses: Visualized sinuses and mastoids are clear. IMPRESSION: No trauma found, source of reported headache, dizziness and visual changes is not seen. Note: These findings are concordant with the preliminary interpretation. Dictated by: Dre Wright M.D. on 12/12/2018 at 6:54 Approved by: Dre Wright M.D. on 12/12/2018 at 6:57
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
[2018-12-12] MEDS: MECLIZINE HCL 12.5 MG TABLET 50 MG PO (01:29)
[2018-12-12 02:47] VITALS: BP 143/92; PULSE 72; RESP 18; TEMP 36.3; O2SAT 96
== END 2018-12-12 02:51 | disposition home or self-care (01) ==
PROVIDERS: Emergency Provider Emergency Medicine; Family Provider Student in an Organized Health Care Education/Training Program; PCP Student in an Organized Health Care Education/Training Program
DX: R09.81 Nasal congestion (principal); R55 Syncope and collapse
CPT/HCPCS: 70450; 99283; 99284

== ENCOUNTER → 2019-01-07 16:04 | Outpatient (CLI) | payer MEDICARE, MEDICAID, SELFPAY ==
[2019-01-07 17:50] LABS: Alanine Aminotransferase 53 IU/L (21-72); Albumin 4.7 g/dL (3.5-5.0); Albumin Globulin Ratio 1.5 (1.0-2.8); Alkaline Phosphatase 80 U/L (38-126); Aspartate Aminotransferase 38 IU/L (17-59); BUN Creatinine Ratio 12.5 (6-22); Bilirubin Direct 0.2 mg/dL (0.0-0.4); Bilirubin Total 1.4 mg/dL (0.2-1.3); Blood Urea Nitrogen 10 mg/dL (9-20); Calcium 9.6 mg/dL (8.4-10.2); Carbon Dioxide 25 mmol/L (22-32); Chloride 105 mmol/L (98-107); Cholesterol 240 mg/dL (140-199); Estimated Glomerular Filt Rate > 60.0 mL/min (>60); Globulin 3.2 g/dL (1.7-4.1); Glucose 67 mg/dL (70-100); HDL Cholesterol 47 mg/dL (40-60); HEMOLYSIS < 15 (0-50); LDL Cholesterol Calculated 155 mg/dL (<100); Potassium 4.3 mmol/L (3.4-5.1); Sodium 140 mmol/L (137-145); Total Protein 7.9 g/dL (6.3-8.2); Triglycerides 192 mg/dL (35-150)
== END ==
PROVIDERS: Family Provider Student in an Organized Health Care Education/Training Program; PCP Student in an Organized Health Care Education/Training Program; Visit Provider Student in an Organized Health Care Education/Training Program
DX: E55.9 Vitamin D deficiency, unspecified (principal); K76.0 Fatty (change of) liver, not elsewhere classified; Z13.220 Encounter for screening for lipoid disorders
CPT/HCPCS: 36415; 80053; 80061; 82248

== ENCOUNTER → 2019-01-28 14:43 | Outpatient (CLI) | payer MEDICARE, MEDICAID, SELFPAY ==
[2019-01-28 16:27] LABS: Vitamin D 25 Hydroxy (D3) 29.2 ng/mL (30.0-100.0)
[2019-01-31 10:00] LABS: Hepatitis A Antibody IgM NONREACTIVE (NONREACTIVE); Hepatitis Acute Panel Interp 0.01; Hepatitis B Core Antibody IgM NONREACTIVE (NONREACTIVE); Hepatitis B Surface Antigen NONREACTIVE (NONREACTIVE); Hepatitis C Antibody NONREACTIVE
== END ==
PROVIDERS: PCP Student in an Organized Health Care Education/Training Program; Visit Provider Student in an Organized Health Care Education/Training Program
DX: E55.9 Vitamin D deficiency, unspecified (principal); E56.9 Vitamin deficiency, unspecified; K76.0 Fatty (change of) liver, not elsewhere classified
CPT/HCPCS: 36415; 80074; 82306

== ENCOUNTER → 2019-03-22 11:13 | Outpatient (CLI) | payer MEDICARE, MEDICAID, SELFPAY ==
--- NOTE | 2019-03-22 | DI.MRI.S_ITS ---
PROCEDURE: MR LUMBAR SPINE WO CON INDICATIONS: LOW BACK PAIN TECHNIQUE: Noncontrast sagittal T1 spin echo and T2 fast echo, sagittal STIR, axial T1 and T2 fast spin echo through the lumbar spine. In cases with scoliosis, additional coronal T2 fast spin echo may be performed. COMPARISON: [facility], MR, L-SPINE W&WO CONTRAST, 03/18/2017, 11:12. [facility], MR, L-SPINE W&WO CONTRAST, 08/20/2016, 19:08. [facility], MR, L-SPINE WITHOUT CONTRAST, 09/11/2008, 16:47. FINDINGS: Image quality: Diagnostic, with note made of motion artifact. Alignment and Curvature: There is normal bony alignment. Bone Marrow: Marrow is of normal overall signal. No acute vertebral body compression fractures. There is a remote center compression deformity seen at T12, with 50% loss of height centrally. No significant posterior displacement fracture fragments can be seen. Spinal Cord: Conus medullaris terminates at the T12-L1 level. Visualized cord demonstrates normal signal and size. Paraspinous Soft Tissues: No paravertebral masses. T12-L1: Normal appearance. L1-L2: Normal appearance. L2-L3: Postoperative changes are seen, with bilateral pedicle screws and vertical fixation rods. There is associated susceptibility artifact. Mild loss of disc height is seen. Loss of disc signal is seen. Reactive marrow endplate changes are seen, which are hyperintense on T1-weighted and T2-weighted imaging and most consistent with fatty metaplasia (Modic type II changes). Mild generalized disc bulge is seen. Mild bilateral neural foraminal narrowing is seen. No significant central canal narrowing is seen. When comparison is made with the prior examination, these findings are similar. L3-L4: The disc height and disk signal are well-preserved. Moderate facet hypertrophy is seen. No significant neural foraminal or central canal narrowing can be seen. Stable from the prior study. L4-L5: The disc height and disk signal are well-preserved. Minimal disc bulge is seen. Mild facet joint hypertrophy is seen. Mild bilateral neural foraminal narrowing is seen. No significant central canal narrowing is seen. Stable from the prior study. L5-S1: The disc height and disc signal are relatively well-preserved. Mild generalized disc bulge is seen. Mild facet joint hypertrophy is seen. Mild bilateral neural foraminal narrowing is seen. No significant central canal narrowing is seen. No significant change from the prior. IMPRESSION: L2-L3 postoperative changes are seen. Multiple levels of lumbar spine degenerative change are seen, which are not significantly progressed compared to 2017. Dictated by: Jonathan Olivas M.D. on 03/22/2019 at 14:06 Approved by: Jonathan Olivas M.D. on 03/22/2019 at 14:12
== END ==
PROVIDERS: PCP Student in an Organized Health Care Education/Training Program; Visit Provider Physical Medicine & Rehabilitation Pain Medicine
DX: M54.5 Low back pain (principal); M47.816 Spondylosis without myelopathy or radiculopathy, lumbar region; M47.817 Spondylosis without myelopathy or radiculopathy, lumbosacral region
CPT/HCPCS: 72148

== ENCOUNTER → 2019-04-01 16:48 | Outpatient (CLI) | payer MEDICARE, MEDICAID, SELFPAY ==
[2019-04-01 17:55] LABS: Hematocrit 39.6 % (41-53); Hemoglobin 13.6 g/dL (13.5-17.5); Mean Corpuscular HGB Conc 34.3 % (30-36); Mean Corpuscular Hemoglobin 30.8 PG (26-34); Mean Corpuscular Volume 89.8 fL (80-100); Platelet Count 179 X10^3/uL (150-400); Red Blood Cell Count 4.41 X10^6/uL (4.5-5.9); Red Cell Distribution Width 13.1 % (11.6-14.8); White Blood Cell Count 4.3 X10^3/uL (4.5-11.0)
== END ==
PROVIDERS: PCP Student in an Organized Health Care Education/Training Program; Visit Provider Orthopaedic Surgery
DX: Z01.818 Encounter for other preprocedural examination (principal)
CPT/HCPCS: 36415; 85027

== ENCOUNTER 2019-04-05 11:24 | Day surgery (SDC) | payer MEDICARE, MEDICAID, SELFPAY ==
[2019-03-30 07:30] VITALS: BMI 27.6
[2019-04-05] VITALS (16 sets, daily range): BP systolic 109–147; BP diastolic 54–97; PULSE 62–86; RESP 12–26; TEMP 36.1–36.5; O2SAT 92–100; BMI 27.6
--- NOTE | 2019-04-05 | DI.RAD.S_ITS ---
PROCEDURE: XR CERVICAL SPINE 2V OR 3V INDICATIONS: C4-5, C6-7 MOBI C, ACDF TECHNIQUE: 2 view(s) of the cervical spine were acquired. COMPARISON: [facility], , C-SPINE WITHOUT CONTRAST, 01/12/2018, 10:17. FINDINGS: Bones: Immediate postoperative imaging with endotracheal tube in normal position and with interbody disc prosthesis placement at C4-5 and C6-7. Normal alignment is established. Soft tissues: No prevertebral soft tissue swelling. IMPRESSION: Excellent anatomic alignment established after interbody disc prosthesis placement at the C4-5 and C6-7 levels of the cervical spine. Dictated by: Dre Wright M.D. on 04/05/2019 at 16:32 Approved by: Dre Wright M.D. on 04/05/2019 at 16:33
[2019-04-05] MEDS: LACTATED RINGERS 1,000 ML 42 ML IV (12:30)
--- NOTE | 2019-04-05 13:03 | PM.PREOP ---
Pre-operative Note Interval Note History & Physical reviewed/Exam performed by Physician: Yes Changes to H&P: No
--- NOTE | 2019-04-05 13:06 | PM.OP.1 ---
Operative Date/Time/Diagnoses Date of procedure: 04/05/19 Time of procedure: 15:08 Pre-op diagnosis: Cervical disc herniation with radiculopathy Post-op diagnosis: same Procedure & Clinicians Procedure: C4-5 and C6-7 anterior cervical diskectomy with artificial disc replacement Use of microscope Same procedure as scheduled: Yes Indications: [age] year old male with intractable pain from disc herniations. They had failed conservative management and requested operative intervention. Risks and benefits of surgery were discussed and appropriate consents were obtained. Surgeon: Facundo Song Manager Career: [employer] Anesthesia Type: General Operative Notes Findings: None Closure Type: primary Specimen(s): none sent Prosthetic devices, grafts, tissues, transplants, or devices: Twin Mobi-C Blood products transfused: none Procedure in detail: Patient was brought to the operating room and intubated on the table. A time-out was performed. Preoperative antibiotics were given. The neck was prepped and draped in the standard sterile fashion. Using a skin fold, we made a 3 cm oblique incision on the left side. We used Bovie to go through the platysma and then did a standard anterolateral blunt dissection down to the precervical fascia. Fascia was nicked and elevated up. A marker was placed and x-ray was taken for localization. We then subperiosteally elevated up the longus colli muscles. Self-retaining retractors were placed. Blakesburg pins were placed under x-ray guidance to be parallel to the endplates. We then brought in the microscope. A scalpel used to perform an annulotomy. We then used a combination of pituitaries and curettes and Kerrison to perform a complete anterior diskectomy at C4-5. We took down the PLL and used Kerrison to remove any posterior disc material and osteophytes. At the end we could from the nerve hook cephalad caudally and out the foramen and everything was opened. We distracted open with the parallel spreader operator automatic. We then used the horseshoes for sizing. We then used the trials. We then inserted a 15 x 15 x 5 mm size Mobi-C artificial disc replacement under fluoroscopic guidance for positioning. The traction was released and x-ray was checked again. We then went down and skipped over to C6-7. The Blakesburg pins were placed in the self retaining retractors were opened. Again a complete diskectomy was performed with a scalpel, curettes, and Kerrison rongeurs. The PLL was taken down and posterior disc tissue was removed. In the end the nerve could be run throughout and there was no further compression. We trialed and then placed another 17 x 15 x 5 mm Mobi-C artificial disc replacement under fluoroscopic guidance. We then compressed down the Blakesburg pins. The self-retaining retractors and Blakesburg pins were removed and final x-rays taken. The wound was irrigated. There was no bleeding. The carotid was beating nicely. The platysma was closed. The superficial was closed. The skin was closed. A sterile dressing was placed. They were then extubated and brought to recovery room with no complications. Complications: none Condition: stable Disposition: PACU Plan for aftercare: Overnight admission. Soft collar for comfort.
[2019-04-05] MEDS: CEFAZOLIN 2 GM/100 ML FROZ.PIGGY IV ×2 (13:35→21:35)
--- NOTE | 2019-04-05 13:59 | SUR.OPER ---
Supine, head on gel donut. Arms padded with gel pads, tucked at sides, towel roll under shoulders. Safety belt at thigh. Legs uncrossed.
[2019-04-05] MEDS: SODIUM CHLORIDE 0.9% 1,000 ML, GENTAMICIN 80 MG IRR (14:24)
[2019-04-05] MEDS: THROMBIN (RECOMBINANT) 5,000 UNIT VIAL 5000 UNIT TOP (14:28)
[2019-04-05] MEDS: BUPIVACAINE 0.25% W/ EPI 30 ML VIAL 60 ML INJ (14:29)
[2019-04-05] MEDS: MORPHINE 10 MG/ML INJ 2 MG IV ×10 (15:20→16:00)
--- NOTE | 2019-04-05 15:51 | SUR.PREOP ---
carla up multiple doses of dilaudid and reqalized allergy to med- disposed w witness and administered morphine per dr or dayanna
[2019-04-05] MEDS: fentaNYL 100 MCG/2 ML INJ 50 MCG IV ×2 (16:05→16:10)
[2019-04-05] MEDS: OXYCODONE IR 5 MG TABLET PO ×2 (16:15→19:42)
[2019-04-05] MEDS: LACTATED RINGERS 1,000 ML 125 ML IV (17:10)
[2019-04-05] MEDS: MONTELUKAST 10 MG TABLET PO (18:01)
[2019-04-05] MEDS: LORATADINE 10 MG TABLET PO (19:48)
[2019-04-05] MEDS: OXYCODONE IR 5 MG TABLET 10 MG PO (19:57)
[2019-04-05] MEDS: SENNOSIDES 8.6 MG TABLET 17.2 MG PO (21:03)
[2019-04-05] MEDS: DOCUSATE 100 MG CAPSULE PO (21:03)
[2019-04-05] MEDS: MORPHINE 2 MG/ML INJ IV ×2 (21:25→23:51)
--- NOTE | 2019-04-05 22:19 | PC.NURSE ---
Pt A&OX4. 96%RA. impulsive. reports pain with movement 06/18. administered morphine IV 2mg. percolone was ineffective. SBA to the BR. call light in reach. bed alarm active. IVF infusing.
[2019-04-05] MEDS: ONDANSETRON 4 MG/2 ML INJ IV (23:51)
--- NOTE | 2019-04-06 00:54 | PC.NURSE ---
2300- Pt POD#0 C5-C7 diskectomy w/ gauze & tegaderm CDI & soft collar in place. Pain management has been an issue for this patient. Moving 1PA in room w/ BA on; VSS on RA. LR running as ordered into R hand IV; tolerating regular diet at this time. Problems voiding for first few hours postop, voiding x1 since bladder scan. 0000- IV Zofran & Morphine for nausea & pain. Pt having pain w/ swallowing. 0120- Oxycodone given for cont post op pain. Pt cont to eat candy/chips in bed & CO nausea. Instructed pt that nausea might be from the snacks he is eating, he denied wanting to stop eating. 0300- Pt voided 800cc of urine, no need for bladder scan. 0530- Pt had emesis of candy & chips. Pt stopped eating his snacks at this time.
[2019-04-06] MEDS: OXYCODONE IR 5 MG TABLET 10 MG PO ×3 (01:14→09:59)
[2019-04-06] MEDS: LACTATED RINGERS 1,000 ML 125 ML IV (01:16)
[2019-04-06 03:25] VITALS: BP 133/77; PULSE 80; RESP 18; TEMP 36.6; O2SAT 98
[2019-04-06] MEDS: CEFAZOLIN 2 GM/100 ML FROZ.PIGGY IV (06:20)
--- NOTE | 2019-04-06 07:50 | PC.NURSE ---
Addendum entered by Keesha Hidalgo R.N. 04/06/19 10:22: DC - when friend arrived, reviewed dc instructions with pt, scripts provided, belongings gathered, including clothes, shoes, cell phone and youssef, he said he had a 2nd pair black socks, only x1 pr noted, pt had req record copies and after release signed, [facility] provided cd and records, pt refused WC and student nurse accompanied to cafeteria as pt and friend wanted to stop for addl breakfast. Addendum entered by Keesha Hidalgo R.N. 04/06/19 09:14: GI - ate breakfast, then stated some underlying nausea, given 4mg iv zofran. Original Note: AM NOTE - pt is awake, moderately anxious, has a broken tooth r upper where an open cavity is and pt needs to see his dentist lenora today. States the dentist in only works until 11am, discussed discharging, asking if pt can postpone appt, he is going to contact dentist at opening this am and will update, no nausea now, asking for more food at breakfast, +bt and passing some flatus, tawana fluids, some mild discomfort swallowing and advised pt to take in soft foods but pt is ordering extra meneses this am, hx numbness 4th-5th digits r hand to mid forearm and some neuropathy lateral l foot, moving all extremities freely, wearing soft collar, telfa dsg cdi, ra 96%, hr 80, bp 130/76, saline lock this am.
[2019-04-06 08:00] VITALS: BP 130/76; PULSE 82; RESP 18; TEMP 36.4; O2SAT 98
--- NOTE | 2019-04-06 08:09 | PM.PNPO.1 ---
Subjective Date Patient Seen: 04/06/19 Time Patient Seen: 08:09 Interval history: He is doing well. No more pain over the shoulder. Still some tingling and numbness in the right forearm Exam Vital Signs (past 8 hours): - 04/06/19 03:25 Temperature 98 F Pulse Rate 80 Respiratory Rate 18 Blood Pressure 133/77 Pulse Oximetry 98 Oxygen Delivery Method Nasal Cannula Oxygen Flow Rate 1 Const Orientation: alert and oriented x3 Back/Spine/Pelvis Other: CDI. 5/5 motor both upper extremities. Assessment & Plan Post-op Postoperative Procedures Operation Date: 04/05/19 13:45 Actual Procedures Side Surgeon p C4-5, C6-7 Cervical Disc Replacement Facundo Song MD he is doing well. Mobilize with therapy and discharge home today.
[2019-04-06] MEDS: DOCUSATE 100 MG CAPSULE PO (08:40)
[2019-04-06] MEDS: ONDANSETRON 4 MG/2 ML INJ IV (08:43)
[2019-04-06] MEDS: hydrOXYzine pamoate 25 MG CAPSULE PO (08:48)
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
--- NOTE | 2019-04-06 10:06 | OT.IP.TRT ---
Current Diagnoses Cervical disc disorder with radiculopathy, unspecified cervical region (04/05/19) Strain of muscle, fascia and tendon at neck level, subsequent encounter (04/05/19) Surgery Performed Operation Date: 04/05/19 13:45 Actual Procedures p C4-5, C6-7 Cervical Disc Replacement - Facundo Song MD Occupational Therapy Treatment Note M3 OT- IP Subjective and Pain Start: 04/06/19 10:19 Freq: Status: Active Protocol: Document 04/06/19 10:19 DARIANA (Rec: 04/06/19 10:22 DARIANA [id number]) OT- Subjective Occupational Therapy Visit Type Type Administrative Note Visit Start Time 10:00 Visit Stop Time 10:06 Total Visit Minutes 6 Notes OT referral received on this 38 yr old male admitted for C4 -5, C6-7 artificial disc replacements. Pt sitting EOB, already dressed for d/c. Pt has been cleared for d/c by P. T. Provided brief review of C spine precautions during ADLS and methods to adapt dressing and bathing. No further OT services needed. No charge.
--- NOTE | 2019-04-06 11:21 | CM.IDA ---
Initial DCP Assessment Note: Pt is a 38 yo male, resident of [place], now POD#1 from spinal surgery w/ Dr Song . PCP: Dr Russell Payer: Medicare/Medicaid Reviewed chart, pt discussed in multidisciplinary rounds this morning. Therapy has cleared pt for return home and pt has planned for home, DC order from [facility] has already been initiated this morning. No needs expected from DC planning team although will remain available in case this changes today. ALESHIA Rossi Discharge Planning/Care Management CM Discharge Assessment Start: 04/06/19 10:56 Freq: Status: Active Protocol: Document 04/06/19 10:56 SHERIE (Rec: 04/06/19 11:21 SHERIE [id number]) Discharge Planning Assessment Assigned Divisional Merchandising Manager ALESHIA Spear DPOA/Assigned Designee Name Aunt [facility] Contact Information [phone] Advance Directives? Yes Advance Directives on File No History Provided By Patient Prior Living Arrangements House Household Members none Type of transporation used prior to Drives own vehicle admit Independent with ADL's Yes Is patient alert and oriented? Yes Barriers to Discharge No Discharge Plan Home Transportation Arrangement Friend/family Referrals Initiated None needed Whiteboard Updated in Patient Room with Yes name and ext. # of Divisional Merchandising Manager Review Status In Process
== END 2019-04-06 10:30 ==
LOC: OR 11:27 → AC 17:01
PROVIDERS: PCP Student in an Organized Health Care Education/Training Program; Visit Provider Orthopaedic Surgery
PROC: (CPT 22856; principal; 2019-04-05 13:45)
DX: M50.121 Cervical disc disorder at C4-C5 level with radiculopathy (principal); S16.1XXD Strain of muscle, fascia and tendon at neck level, subsequent encounter
CPT/HCPCS: 22856; 22858; 72040; 76000; 94760; 97161; C1776; J0690; J1100; J2270; J2405; J2704; J3010

== ENCOUNTER → 2019-05-13 15:47 | Outpatient (CLI) | payer MEDICARE, MEDICAID, SELFPAY ==
[2019-04-05 16:44] VITALS: BMI 27.6
--- NOTE | 2019-05-13 | DI.MRI.S_ITS ---
PROCEDURE: MR ANKLE LT WO CON INDICATIONS: other specified joint disorder, lt ankle TECHNIQUE: Noncontrast sagittal T1 spin echo and T2 fast spin echo with fat saturation, axial proton density fast spin echo and T2 fast spin echo with fat saturation, coronal T1 spin echo and T2 fast spin echo with fat saturation through the ankle/hindfoot. COMPARISON: [facility], MR, MR ANKLE LT WO CON, 08/17/2018, 11:11. FINDINGS: Image quality: Excellent. Bones and joints: No bone marrow contusions or fractures. No hindfoot coalitions. No osteochondral injuries of the talar dome. No pathologic joint effusions. Medial structures: The posterior tibialis, flexor digitorum longus, and flexor hallucis longus tendons are intact. Minimal fluid adjacent to the posterior tibialis tendon The posterior tibial neurovascular bundle appears normal within the tarsal tunnel, without extrinsic mass effect. The deep layer (anterior and posterior tibiotalar ligaments) and superficial layer (tibionavicular, tibiospring, and tibiocalcaneal ligaments) of the deltoid ligament appear normal. The spring ligament components (superomedial calcaneonavicular, medioplantar oblique calcaneonavicular, and inferoplantar longitudinal ligaments) are intact. Lateral structures: The anterior talofibular, calcaneofibular ligaments appear intact. There is persistent intrasubstance signal change involving the posterior talofibular ligament in keeping with chronic sprain. More superiorly, the anterior and posterior tibiofibular ligaments appear intact, as is the intermalleolar ligament. The tibiofibular syndesmosis is normal in width at 2 mm or less. Previously described longitudinal split tear of the peroneus brevis again noted, grossly unchanged. Unchanged mild peroneus longus tendinopathy. Adjacent bony peroneal tubercle and retrotrochlear prominence are normal in size. The sinus tarsi demonstrates normal fatty signal, without edema, fibrosis, or cyst formation. Visualized sinus tarsi components (cervical ligament, interosseous talocalcaneal ligament, roots of the inferior extensor retinaculum) appear normal. The calcaneonavicular and calcaneocuboid components of the bifurcate ligament appear intact. The dorsal calcaneocuboid ligament appears intact. Anterior structures: The tibialis anterior, extensor hallucis longus, and extensor digitorum longus tendons appear intact. The dorsal talonavicular ligament appears intact. Posterior and plantar structures: Achilles tendon is intact. Medial and lateral bands of the plantar fascia are of normal thickness. No abductor digiti quinti muscle atrophy to suggest Chavez neuropathy. IMPRESSION: Overall, minimal interval change since since 08/17/18. Redemonstration of mild peroneus brevis longitudinal split tear and peroneus longus tendinopathy. Persistent intrasubstance signal change within the posterior talofibular ligament in keeping with chronic sprain. Mild diffuse hindfoot degeneration. Mild posterior tibialis tenosynovitis. Dictated by: Deandre Ramirez M.D. on 05/13/2019 at 16:57 Approved by: Deandre Ramirez M.D. on 05/13/2019 at 17:04
== END ==
PROVIDERS: PCP Student in an Organized Health Care Education/Training Program; Visit Provider Orthopaedic Surgery Foot and Ankle Surgery
DX: M25.872 Other specified joint disorders, left ankle and foot (principal); S96.812A Strain of other specified muscles and tendons at ankle and foot level, left foot, initial encounter; M19.072 Primary osteoarthritis, left ankle and foot; M65.872 Other synovitis and tenosynovitis, left ankle and foot
CPT/HCPCS: 73721

== ENCOUNTER → 2019-05-30 09:47 | Outpatient (CLI) | payer MEDICARE, MEDICAID, SELFPAY ==
[2019-04-05 16:44] VITALS: BMI 27.6
--- NOTE | 2019-05-30 | DI.MRI.S_ITS ---
PROCEDURE: MR SHOULDER RT WO CON INDICATIONS: Pain in right shoulder TECHNIQUE: Noncontrast oblique coronal T2 fast spin echo with fat saturation, oblique sagittal T1 spin echo and T2 fast spin echo with fat saturation, axial T1 spin echo and T2 fast spin echo with fat saturation through the shoulder. COMPARISON: [facility], , SHOULDER WITHOUT CONTRAST, 06/09/2017, 9:20. FINDINGS: Image quality: Excellent. Rotator cuff: Tendinosis and low to moderate grade articular and bursal surface partial-thickness tear involving distal supraspinatus is seen. Distal infraspinatus tendinosis is noted. Distal subscapularis tendon is intact. No full-thickness rotator cuff tendon rupture. Sagittal images demonstrate no significant muscle atrophy. Bones and bursae: No bone marrow contusions or fractures. Mild acromioclavicular joint osteoarthritis is seen with joint space narrowing, subchondral sclerosis and cyst formation. Trace amount of fluid within subacromial subdeltoid bursa is seen. Capsule and soft tissues: In the absence of intra-articular contrast, there is suggestion of superior anterior labral tear extending from 12 to 2:00 position. The glenohumeral ligaments appear intact. Tendinosis involving proximal intra-articular portion of long head of biceps tendon is seen. The rotator interval appears normal, without fibrosis. The coracohumeral ligament is normal in thickness. IMPRESSION: 1. Tendinosis and low to moderate grade articular and bursal surface partial-thickness tear involving distal supraspinatus extending to the musculotendinous junction. Distal infraspinatus tendinosis. No full-thickness rotator cuff tendon rupture. 2. Finding is suggestive of superior anterior labral tear at the 12 to 2:00 position. 3. Proximal long head of biceps tendinosis. Mild acromioclavicular joint osteoarthritis. Dictated by: Andres Cadet M.D. on 05/30/2019 at 13:22 Approved by: Andres Cadet M.D. on 05/30/2019 at 13:27
== END ==
PROVIDERS: PCP Student in an Organized Health Care Education/Training Program; Visit Provider Orthopaedic Surgery
DX: M25.511 Pain in right shoulder (principal); M19.011 Primary osteoarthritis, right shoulder; M75.21 Bicipital tendinitis, right shoulder
CPT/HCPCS: 73221

== ENCOUNTER 2019-10-03 13:16 | Day surgery (SDC) | payer MEDICARE, MEDICAID, SELFPAY ==
[2019-04-05 16:44] VITALS: BMI 27.6
[2019-08-05 15:19] VITALS: BMI 29.7
[2019-10-03] VITALS (8 sets, daily range): BP systolic 118–136; BP diastolic 72–88; PULSE 68–94; RESP 12–24; TEMP 36.1–36.3; O2SAT 93–98; BMI 29.7
[2019-10-03] MEDS: LACTATED RINGERS 1,000 ML 42 ML IV ×2 (14:00→16:23)
[2019-10-03] MEDS: CEFAZOLIN 2 GM/100 ML FROZ.PIGGY IV (14:07)
--- NOTE | 2019-10-03 14:22 | PM.PREOP ---
Pre-operative Note Interval Note History & Physical reviewed/Exam performed by Physician: Yes Changes to H&P: No
[2019-10-03] MEDS: fentaNYL 100 MCG/2 ML INJ 50 MCG IV ×2 (14:46→14:50)
[2019-10-03] MEDS: MIDAZOLAM 2 MG/2 ML VIAL IV ×2 (14:46→14:50)
--- NOTE | 2019-10-03 15:03 | SUR.PREOP ---
Block start time [1444] . Monitoring initiated and maintained throughout procedure. Oxygen and medications given per anesthesiologist instructions. Patient remained stable throughout procedure, no adverse reactions noted. Block end time [1452].
--- NOTE | 2019-10-03 15:08 | SUR.PREOP ---
1506 to OR in stable condition.
--- NOTE | 2019-10-03 15:46 | SUR.OPER ---
Lateral on padded OR bed with rocha bag positioner, head on pillow, gel axillary roll in place, bottom leg bent with gel pad under knee to foot, upper leg straight and supported with pillows. Operative arm secured in shoulder positioning suspension device. non-operative arm secured on padded arm board. Safety belt at hip, tape over blanket securing lower legs.
[2019-10-03] MEDS: BUPIVACAINE 0.5% W/ EPI (PF) VIAL 30 ML INJ (15:59)
[2019-10-03] MEDS: SODIUM CHLORIDE IRRIG SOLUTION 3,000 ML, EPINEPHrine 1 MG IRR (16:00)
--- NOTE | 2019-10-03 16:49 | PM.OP.1 ---
Operative Date/Time/Diagnoses Date of procedure: 10/03/19 Time of procedure: 16:30 Pre-op diagnosis: 1. Acromioclavicular osteoarthritis, right shoulder 2. Right shoulder biceps tendinitis 3. Right carpal tunnel syndrome Post-op diagnosis: other (1. Right shoulder acromioclavicular osteoarthritis 2. Right shoulder type 1 SLAP lesion 3. Right carpal tunnel syndrome) Procedure & Clinicians Procedure: 1. Right shoulder arthroscopic distal clavicle excision 2. Right shoulder debridement of a type 1 SLAP lesion 3. Right carpal tunnel release Same procedure as scheduled: Yes Indications: Patient is a 39-year-old gentleman whose had persistent right shoulder pain with an MRI indicative of reactive edema around the AC joint. He also has had symptoms suggestive of biceps tendinitis. He also has symptoms of carpal tunnel and a confirmatory EMG/NCV. After discussion the risks benefits and alternatives he has agreed to right shoulder arthroscopy and a right carpal tunnel release. Risks discussed included but were not limited to: Failure to improve, stiffness, infection, nerve damage, deep venous thrombosis, pulmonary embolism, stroke, myocardial infarction, permanent paralysis and . Surgeon: Hayden Lane Click Yes if Unassisted: Yes Anesthesia Type: General, Peripheral nerve block and Local Operative Notes Findings: 1. Normal glenohumeral cartilage 2. Fraying of the superior glenoid labrum or type 1 SLAP lesion 3. Middle glenohumeral ligament originating from the superior labrum consistent with a ?Hearne complex? 4. Intact subscapularis 5. Intact biceps and biceps insertion with no signs of significant damage or inflammation 6. Intact supraspinatus 7. Intact infraspinatus 8. Normal axillary pouch 9. Normal rotator cuff from the bursal surface 10. Normal-appearing acromial surface with no fraying (no impingement lesion) 11. Acromioclavicular joint with obvious arthritic change. 12. Full range of motion and no evidence for pathologic laxity on shoulder examination 13. Compressed but not iatrogenically damaged median nerve. Closure Type: primary Specimen(s): none sent Prosthetic devices, grafts, tissues, transplants, or devices: None Estimated Blood Loss (mL): 10 Blood products transfused: none Procedure in detail: The patient was seen in the preoperative area where identified the right shoulder and right wrist as the operative sites and both of these were marked with my initials. He received preoperative antibiotics and underwent an interscalene block. He was taken to the operating room and placed on the operating room table in the supine position where he underwent the induction of a general anesthetic. His right shoulder was examined under anesthesia with result given above. He was then carefully repositioned the left lateral decubitus position with care being taken to maintain his spine in a neutral position. All pressure points were well padded. He was stabilized in this position with the rocha bag. An axillary roll was placed. The right arm was prepared from the fingertips to the base the neck with ChloraPrep in the usual fashion and draped through sterile drapes. Subcutaneous landmarks were outlined on the skin with marking pen. Portal sites were selected. Posterior portal was created for the arthroscope and diagnostic arthroscopy ensued with result given above. An anterior portal was created and a shaver inserted to debride the type 1 SLAP lesion. The arthroscope was then withdrawn and placed in the subacromial space. Bursectomy was performed for visualization. There was no evidence of any significant impingement. The distal 8-10 mm of clavicle was excised due to the preoperative pain and MRI findings of edema there. Findings of arthritis were confirmed. At this point all arthroscopic equipment was removed, the wounds were closed with 4 0 Monocryl and Steri-Strips. The subcutaneous tissues were injected with 10 mL of 0.5 % Marcaine and an additional 10 mL of the same solution was injected into the subacromial bursa. The wounds were dressed with sterile 4x4s, an ABD and Tegaderm. The patient was then carefully repositioned in the supine position after lifting him and removing the rocha bag. A tourniquet was placed around the proximal right arm. The right arm was prepared for the fingertips to the tourniquet with ChloraPrep in usual fashion draped with sterile drapes. The arm was elevated and exsanguinated with an Esmarch bandage the tourniquet inflated to 250 mm of mercury. An approximately 2.5 cm incision was created in line with the ring finger metacarpal between Bertrand's line and the wrist crease. The subcutaneous tissues were dissected to the palmar fascia which was split distally and the distal and of the transverse carpal ligament identified. A closed Pérez scissors was placed beneath the ligament to act as a nerve protector in the ligament was transected using a 15 scalpel blade. Metzenbaum scissors were then used to propagate this split into the forearm fascia with care being taken to maintain them to the ulnar side of the palmaris longus during this maneuver. A retractor was then placed in the proximal wound and the median nerve examined and found to be compressed but not iatrogenically damaged. The wound was then closed with interrupted horizontal 4 O nylon mattress sutures. An additional 4 mL of 0.5% Marcaine was injected in the subcutaneous soft tissues for postoperative pain control here. Dressings of Xeroform, sterile 4x4s and 3 in Garry wrap were applied. The tourniquet was deflated during dressing placement for total tourniquet time of 10 minutes. Patient's arm was placed in a sling and he was transferred to the recovery room in good condition having tolerated the procedure well. Complications: none Post-operative Condition: stable Disposition: PACU Plan for aftercare: The patient will be maintained on a standard arthroscopic subacromial decompression protocol. His sutures will be removed from the carpal tunnel site in 2 weeks. He will be discharged later this afternoon.
[2019-10-03] MEDS: hydrOXYzine pamoate 25 MG CAPSULE PO (17:00)
[2019-10-03] MEDS: OXYCODONE IR 5 MG TABLET PO (17:17)
--- NOTE | 2019-10-03 17:58 | SUR.PHASEII ---
Pt reported anxiety in pacu but that it resolved quickly. Dr. Marrero was notified. recommended Vistaril, which was given.
== END 2019-10-03 17:47 | disposition home or self-care (01) ==
PROVIDERS: Family Provider Student in an Organized Health Care Education/Training Program; PCP Student in an Organized Health Care Education/Training Program; Visit Provider Orthopaedic Surgery
PROC: (CPT 23120; principal; 2019-10-03 15:15)
PROC: (CPT 64721; 2019-10-03 15:15)
DX: S43.431A Superior glenoid labrum lesion of right shoulder, initial encounter (principal); M19.011 Primary osteoarthritis, right shoulder; M75.81 Other shoulder lesions, right shoulder; M75.21 Bicipital tendinitis, right shoulder; G56.01 Carpal tunnel syndrome, right upper limb; G89.18 Other acute postprocedural pain
CPT/HCPCS: 29824; 64721; 64415; 64450; J0171; J0690; J2250; J3010

== ENCOUNTER → 2020-07-05 13:31 | Outpatient (CLI) | payer MEDICARE, MEDICAID, SELFPAY ==
[2019-10-17 11:39] VITALS: BMI 27.6
--- NOTE | 2020-07-05 | DI.MRI.S_ITS ---
PROCEDURE: MR SHOULDER RT W CON INDICATIONS: RIGHT SHOULDER BURSITIS TECHNIQUE: After the administration of 12 mL of dilute intra-articular Gadolinium contrast, oblique coronal T1 and T2 spin echo with fat saturation, oblique sagittal T1 spin echo with and without fat saturation, oblique sagittal T2 fast spin echo with fat saturation, axial T1 spin echo with fat saturation through the shoulder. COMPARISON: [facility], CR, XR SHOULDER 2+ VIEWS RIGHT, 11/04/2019, 16:50. FINDINGS: Image quality: Excellent. Rotator cuff: Mild supraspinatus tendinopathy. Low-grade bursal surface fraying. Infraspinatus and teres minor appear intact. Subscapularis demonstrates presumed post-injection related sequela. No atrophy of the rotator cuff muscles. Bones and bursae: No bone marrow contusions or fractures. Moderate acromioclavicular joint degeneration. There is probably chronic superior displacement of the lateral clavicle relative the acromion in keeping with longstanding AC separation Acromion demonstrates conventional anatomy, without an os acromiale. Mild subacromial-subdeltoid bursitis. Capsule and soft tissues: Labrum: Prominent superior sublabral sulcus, anatomic variant. Chronic appearing posterior labral tear with subsequent fibrosis and scarring. There is adjacent segmental degenerative sclerosis and spurring in the glenoid. Angelica complex noted with thickening of the middle glenohumeral ligament and diminutive appearance of the anterior superior labral segment, anatomic variant. Long head of the biceps tendon intact. The rotator interval appears normal, without fibrosis. Coracohumeral ligament intact. IMPRESSION: Mild supraspinatus tendinopathy with low-grade bursal surface fraying Chronic posterior labral tear and/or superimposed degeneration. Superior displacement of the lateral clavicle in keeping with AC separation however this demonstrates chronic MR appearance. Dictated by: Deandre Ramirez M.D. on 07/05/2020 at 16:27 Approved by: Deandre Ramirez M.D. on 07/05/2020 at 16:39
--- NOTE | 2020-07-05 | DI.RAD.S_ITS ---
PROCEDURE: FL SHOULDER INJECTION MR/CT RT INDICATIONS: RIGHT SHOULDER BURSITIS TECHNIQUE: The indications, alternatives, benefits, risks, and complications of the procedure were explained to the patient. Written informed consent was obtained and placed in the chart. The shoulder was examined fluoroscopically and a site for needle placement chosen for entry into the glenohumeral joint from an anterior approach. The skin was prepped and draped in a sterile fashion, and 1% lidocaine infiltrated from skin down to joint capsule. A spinal needle was inserted into the glenohumeral joint, and a small amount of iodinated contrast media injected to confirm intra-articular placement of the needle tip. This was followed by approximately 12 mL dilute solution of a gadolinium containing MR contrast agent. The needle was removed and a dressing was applied. The patient was given postprocedural instructions and sent to the MR suite for MR imaging. FINDINGS: A single fluoroscopic spot image demonstrates intra-articular location of injected iodinated contrast. IMPRESSION: Successful fluoroscopically guided administration of dilute Gadolinium solution into the shoulder joint for MR arthrogram. Dictated by: Dre Wright M.D. on 07/05/2020 at 14:48 Approved by: Dre Wright M.D. on 07/05/2020 at 14:49
== END ==
PROVIDERS: Family Provider Student in an Organized Health Care Education/Training Program; PCP Student in an Organized Health Care Education/Training Program; Referring Provider Orthopaedic Surgery; Visit Provider Orthopaedic Surgery
DX: M75.51 Bursitis of right shoulder (principal); M19.011 Primary osteoarthritis, right shoulder
CPT/HCPCS: 23350; 73222; 77002

== ENCOUNTER → 2020-07-24 09:10 | Outpatient (CLI) | payer MEDICARE, MEDICAID, SELFPAY ==
[2019-10-17 11:39] VITALS: BMI 27.6
--- NOTE | 2020-07-24 | DI.MRI.S_ITS ---
PROCEDURE: MR SHOULDER LT W CON INDICATIONS: STRAIN OF LEFT SHOULDER TECHNIQUE: After the administration of 12 mL of dilute intra-articular Gadolinium contrast, oblique coronal T1 and T2 spin echo with fat saturation, oblique sagittal T1 spin echo with and without fat saturation, oblique sagittal T2 fast spin echo with fat saturation, axial T1 spin echo with fat saturation through the shoulder. COMPARISON: [facility], MR, MR SHOULDER RT W CON, 07/05/2020, 14:42. FINDINGS: Image quality: Excellent. Rotator cuff: Partial thickness bursal sided tear of the supraspinatus tendon involving the critical zone. Infraspinatus and teres minor tendons appear intact. Subscapularis mild tendinopathy and thickening. No atrophy of the rotator cuff muscles. Mild fatty infiltration of the supraspinatus and infraspinatus muscles. Bones and bursae: No bone marrow contusions or fractures. Moderate hypertrophic acromioclavicular joint degeneration. Acromion demonstrates conventional anatomy, without an os acromiale. Mild subacromial-subdeltoid bursitis. Capsule and soft tissues: Labrum: Mild blunting and amorphous signal involving the posterior labrum probably degenerative fraying. No discrete intrasubstance gadolinium signal intensity. Mild fraying of the superior labrum which may be age-appropriate. There is also possible glenoid cartilage undercutting (anatomic variant). Long head of the biceps tendon intact. The rotator interval appears normal, without fibrosis. Coracohumeral ligament intact. IMPRESSION: Partial-thickness bursal sided tear of the supraspinatus tendon. Subscapularis tendinopathy and mild thickening Mild subacromial-subdeltoid bursitis Chronic appearing mild degenerative fraying of the posterior labrum. Dictated by: Deandre Ramirez M.D. on 07/24/2020 at 11:15 Approved by: Deandre Ramirez M.D. on 07/24/2020 at 11:23
--- NOTE | 2020-07-24 | DI.RAD.S_ITS ---
PROCEDURE: FL SHOULDER INJECTION MR/CT LT INDICATIONS: STRAIN OF LEFT SHOULDER TECHNIQUE: The indications, alternatives, benefits, risks, and complications of the procedure were explained to the patient. Written informed consent was obtained and placed in the chart. The shoulder was examined fluoroscopically and a site for needle placement chosen for entry into the glenohumeral joint from an anterior approach. The skin was prepped and draped in a sterile fashion, and 1% lidocaine infiltrated from skin down to joint capsule. A spinal needle was inserted into the glenohumeral joint, and a small amount of iodinated contrast media injected to confirm intra-articular placement of the needle tip. This was followed by approximately 12 mL dilute solution of a gadolinium containing MR contrast agent. The needle was removed and a dressing was applied. The patient was given postprocedural instructions and sent to the MR suite for MR imaging. FINDINGS: A single fluoroscopic spot image demonstrates intra-articular location of injected iodinated contrast. IMPRESSION: Successful fluoroscopically guided administration of dilute Gadolinium solution into the shoulder joint for MR arthrogram. Dictated by: Deandre Ramirez M.D. on 07/24/2020 at 11:26 Approved by: Deandre Ramirez M.D. on 07/24/2020 at 11:27
== END ==
PROVIDERS: Family Provider Student in an Organized Health Care Education/Training Program; PCP Student in an Organized Health Care Education/Training Program; Referring Provider Orthopaedic Surgery; Visit Provider Orthopaedic Surgery
DX: S46.012A Strain of muscle(s) and tendon(s) of the rotator cuff of left shoulder, initial encounter (principal); M75.52 Bursitis of left shoulder; X58.XXXA Exposure to other specified factors, initial encounter
CPT/HCPCS: 23350; 73222; 77002

== ENCOUNTER 2020-10-27 13:18 | Emergency (ER) | payer MEDICARE, MEDICAID, SELFPAY ==
[2019-10-17 11:39] VITALS: BMI 27.6
[2020-10-27 13:33] VITALS: BP 133/72; PULSE 82; RESP 16; TEMP 36.8; O2SAT 99; BMI 35.2
[2020-10-27 14:01] LABS: COVID19 -Nasal RAPID Negative (Negative)
[2020-10-27 14:34] VITALS: BP 125/77; PULSE 85; RESP 16; TEMP 36.8; O2SAT 96
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
== END 2020-10-27 14:33 | disposition home or self-care (01) ==
PROVIDERS: Emergency Medicine; Emergency Provider Nurse Practitioner Family; Family Provider Student in an Organized Health Care Education/Training Program; PCP Student in an Organized Health Care Education/Training Program
DX: Z20.828 Contact with and (suspected) exposure to other viral communicable diseases (principal)
CPT/HCPCS: 87635; 99281; 99282

== ENCOUNTER 2020-11-03 11:38 | Emergency (ER) | payer MEDICARE, MEDICAID, SELFPAY ==
[2019-10-17 11:39] VITALS: BMI 27.6
[2020-11-03 12:02] VITALS: BP 122/75; PULSE 70; RESP 14; TEMP 36.4; O2SAT 98; BMI 34.4
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
[2020-11-03 15:18] LABS: COVID19 -Nasal RAPID Negative (Negative)
== END 2020-11-03 14:51 | disposition home or self-care (01) ==
PROVIDERS: Emergency Provider Emergency Medicine; Family Provider Student in an Organized Health Care Education/Training Program; PCP Student in an Organized Health Care Education/Training Program
DX: Z20.828 Contact with and (suspected) exposure to other viral communicable diseases (principal)
CPT/HCPCS: 87635; 99281; 99282

== ENCOUNTER → 2023-10-13 10:22 | Outpatient (CLI) | payer MEDICARE, MEDICAID, SELFPAY ==
[2019-10-17 11:39] VITALS: BMI 27.6
[2023-10-13 12:24] LABS: Alanine Aminotransferase 55 IU/L (<50); Albumin 4.3 g/dL (3.5-5.0); Albumin Globulin Ratio 1.5 (1.0-2.8); Alkaline Phosphatase 66 U/L (38-126); Aspartate Aminotransferase 39 IU/L (17-59); BUN Creatinine Ratio 12.9 (6-22); Bilirubin Total 0.9 mg/dL (0.2-1.3); Blood Urea Nitrogen 9 mg/dL (9-20); Calcium 9.5 mg/dL (8.4-10.2); Carbon Dioxide 21 mmol/L (22-32); Chloride 108 mmol/L (98-107); Cholesterol 205 mg/dL (140-199); Estimated Glomerular Filt Rate > 60 mL/min (>60); Globulin 2.9 g/dL (1.7-4.1); Glucose 89 mg/dL (70-100); HDL Cholesterol 42 mg/dL (40-60); HEMOLYSIS < 15 (0-50); LDL Cholesterol Calculated 126 mg/dL (<100); Potassium 4.3 mmol/L (3.4-5.1); Sodium 138 mmol/L (137-145); Total Protein 7.2 g/dL (6.3-8.2); Triglycerides 184 mg/dL (35-150)
== END ==
PROVIDERS: Family Provider Student in an Organized Health Care Education/Training Program; PCP Family Medicine; Referring Provider Pediatrics; Visit Provider Pediatrics
DX: R79.89 Other specified abnormal findings of blood chemistry (principal); K76.0 Fatty (change of) liver, not elsewhere classified; E78.00 Pure hypercholesterolemia, unspecified
CPT/HCPCS: 36415; 80053; 80061

== ENCOUNTER 2023-12-09 14:22 | Emergency (ER) | payer MEDICARE, MEDICAID, SELFPAY ==
[2019-10-17 11:39] VITALS: BMI 27.6
[2023-12-09 14:35] VITALS: BP 143/95; PULSE 95; RESP 18; TEMP 36.9; O2SAT 98; BMI 35.9
[2023-12-09 15:10] LABS: COVID19 -Nasal RAPID POSITIVE (Negative)
[2023-12-09] MEDS: KETOROLAC 30 MG/ML VIAL IM (15:42)
[2023-12-09 15:44] VITALS: BP 133/81; PULSE 84; O2SAT 97
--- NOTE | 2023-12-09 15:45 | PC.NURSE ---
patient was asked if he had allergies to medications and he stated Not to toradol. The provider was also asked about the patient allergy on file to naproxen and to tobacco complications. She okaayed the IM 30 mg of T-dol for this patient prior to admin.
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
== END 2023-12-09 15:51 | disposition home or self-care (01) ==
PROVIDERS: Emergency Medicine; Emergency Provider Physician Assistant; PCP Family Medicine
DX: U07.1 COVID-19 (principal)
CPT/HCPCS: 87635; 96372; 99283; J1885

== ENCOUNTER → 2023-12-31 08:55 | Outpatient (CLI) | payer MEDICARE, MEDICAID, SELFPAY ==
[2019-10-17 11:39] VITALS: BMI 27.6
[2023-12-31 10:47] LABS: Hemoglobin A1C% w Est Avg Glu 5.2 % (4.0-6.0)
[2023-12-31 10:48] LABS: Alanine Aminotransferase 48 IU/L (<50); Albumin 4.1 g/dL (3.5-5.0); Albumin Globulin Ratio 1.4 (1.0-2.8); Alkaline Phosphatase 70 U/L (38-126); Aspartate Aminotransferase 39 IU/L (17-59); BUN Creatinine Ratio 15.8 (6-22); Blood Urea Nitrogen 12 mg/dL (9-20); Calcium 9.2 mg/dL (8.4-10.2); Carbon Dioxide 24 mmol/L (22-32); Chloride 106 mmol/L (98-107); Cholesterol 215 mg/dL (140-199); Estimated Glomerular Filt Rate > 60 mL/min (>60); Globulin 2.9 g/dL (1.7-4.1); Glucose 101 mg/dL (70-100); HDL Cholesterol 44 mg/dL (40-60); HEMOLYSIS < 15 (0-50); LDL Cholesterol Calculated 136 mg/dL (<100); Potassium 4.1 mmol/L (3.4-5.1); Sodium 139 mmol/L (137-145); Triglycerides 174 mg/dL (35-150)
== END ==
LOC: LAB 08:57
PROVIDERS: PCP Family Medicine; Referring Provider Nurse Practitioner Psychiatric/Mental Health; Visit Provider Nurse Practitioner Psychiatric/Mental Health
DX: F33.1 Major depressive disorder, recurrent, moderate (principal); F28 Other psychotic disorder not due to a substance or known physiological condition
CPT/HCPCS: 36415; 80053; 80061; 83036

== ENCOUNTER → 2024-07-12 15:49 | Outpatient (CLI) | payer MEDICARE, MEDICAID, SELFPAY ==
[2024-01-14 16:21] VITALS: BMI 27.6
--- NOTE | 2024-07-12 15:50 | DI.MRI.S_ITS ---
PROCEDURE: MR LUMBAR SPINE WO CON INDICATIONS: reeval lumbar spine TECHNIQUE: Noncontrast sagittal T1 spin echo and T2 fast echo, sagittal STIR, and T2 fast spin echo through the lumbar spine. In cases with scoliosis, additional coronal T2 fast spin echo may be performed. COMPARISON: [facility], MR, MR LUMBAR SPINE WO CON, 03/22/2019, 11:31. FINDINGS: Image quality: Excellent. Alignment and Curvature: Posterior fusion is present at L2-3. Bone Marrow: Marrow is of normal overall signal. No acute vertebral body compression fractures. Old compression deformity at T12, unchanged. Spinal Cord: Conus medullaris terminates at the T12-L1 level. Visualized cord demonstrates normal signal and size. Paraspinous Soft Tissues: No paravertebral masses. T12-L1: No disc bulge, spinal stenosis or foraminal narrowing. No interval change. L1-L2: No disc bulge, spinal stenosis or foraminal narrowing. No interval change. L2-L3: Postsurgical changes are present. No spinal stenosis. Mild bilateral foraminal narrowing. No interval change. L3-L4: No disc bulge or spinal stenosis. Minimal bilateral foraminal narrowing, unchanged. Mild facet hypertrophy. L4-L5: Mild disc bulge without spinal stenosis. Mild bilateral foraminal narrowing with facet and ligamentum flavum hypertrophy. No change. L5-S1: Mild disc bulge with mild spinal stenosis. Mild bilateral foraminal narrowing with facet and ligamentum flavum hypertrophy. No interval change. IMPRESSION: Stable interval exam demonstrating posterior fusion at L2-3. No spinal stenosis. Scattered multilevel mild bilateral foraminal narrowing secondary to facet/ligamentum flavum arthropathy. Dictated by: Tennille Menjivar M.D. on 07/14/2024 at 22:23 Approved by: Tennille Menjivar M.D. on 07/14/2024 at 22:28
== END ==
PROVIDERS: PCP Family Medicine; Referring Provider Family Medicine; Visit Provider Family Medicine
DX: M47.26 Other spondylosis with radiculopathy, lumbar region (principal); M47.27 Other spondylosis with radiculopathy, lumbosacral region; M48.061 Spinal stenosis, lumbar region without neurogenic claudication; M48.07 Spinal stenosis, lumbosacral region; M51.16 Intervertebral disc disorders with radiculopathy, lumbar region; M51.17 Intervertebral disc disorders with radiculopathy, lumbosacral region; G89.29 Other chronic pain; M54.50 Low back pain, unspecified; Z98.1 Arthrodesis status
CPT/HCPCS: 72148

== ENCOUNTER → 2024-08-03 15:04 | Outpatient (CLI) | payer MEDICARE, MEDICAID, SELFPAY ==
[2024-01-14 16:21] VITALS: BMI 27.6
--- NOTE | 2024-08-03 15:06 | DI.RAD.S_ITS ---
PROCEDURE: XR KNEE LT 3V INDICATIONS: eval knee pain TECHNIQUE: 3 views of the knee were acquired. COMPARISON: None. FINDINGS: Bones: No acute fractures or dislocations. No suspicious bony lesions. Postsurgical changes from prior anterior cruciate ligament reconstruction. Minimal marginal osteophytes in all 3 compartments. Soft tissues: No joint effusion. Chondrocalcinosis is seen in the lateral femorotibial compartment. IMPRESSION: 1. No acute bony abnormality or significant effusion. 2. Status post anterior cruciate ligament reconstruction. 3. Minimal osteoarthrosis. 4. Chondrocalcinosis. Differential diagnosis includes but is not limited to hemochromatosis, hyperparathyroidism and CPPD. Approved by: Nimesh Phelps M.D. on 08/03/2024 at 20:30
--- NOTE | 2024-08-03 15:06 | DI.RAD.S_ITS ---
PROCEDURE: XR SACRUM COCCYX MIN 2V INDICATIONS: fall on coccyx 8 days ago TECHNIQUE: 3 views of the sacrum and coccyx acquired. COMPARISON: None. FINDINGS: Bones: No acute fractures or dislocations. No suspicious bony lesions. Soft tissues: Visualized bowel gas pattern is normal. No suspicious soft tissue densities. IMPRESSION: No acute osseous abnormality. If symptoms persist or if there is continued clinical concern, cross-sectional imaging such as MRI or CT may be helpful for further evaluation. Approved by: Nimesh Phelps M.D. on 08/03/2024 at 20:32
--- NOTE | 2024-08-03 15:06 | DI.RAD.S_ITS ---
PROCEDURE: XR KNEE RT 3V INDICATIONS: eval knee pain TECHNIQUE: 3 views of the knee were acquired. COMPARISON: None. FINDINGS: Bones: No acute fractures or dislocations. No suspicious bony lesions. Mild joint space narrowing of the medial femorotibial compartment. Lateral and anterior compartment joint spaces are maintained. Soft tissues: No joint effusion. No suspicious soft tissue calcifications. IMPRESSION: Mild medial compartment osteoarthrosis. Approved by: Nimesh Phelps M.D. on 08/03/2024 at 20:31
== END ==
PROVIDERS: PCP Family Medicine; Referring Provider Physician Assistant; Visit Provider Physician Assistant
DX: M53.3 Sacrococcygeal disorders, not elsewhere classified (principal); M17.11 Unilateral primary osteoarthritis, right knee; M11.262 Other chondrocalcinosis, left knee; M25.569 Pain in unspecified knee
CPT/HCPCS: 72220; 73562

== ENCOUNTER → 2025-04-20 15:56 | Outpatient (CLI) | payer MEDICARE, MEDICAID, SELFPAY ==
[2024-01-14 16:21] VITALS: BMI 27.6
[2025-04-20 17:14] LABS: Add Manual Diff / Slide Review NO; Basophils Absolute Auto 100 /uL (0-100); Basophils Percent Auto 1.2 % (0-2); Eosinophils Absolute Auto 100 /uL (0-450); Eosinophils Percent Auto 1.1 % (2-4); Hematocrit 46.6 % (41-53); Lymphocytes Absolute Auto 1500 /uL (1100-4500); Lymphocytes Percent Auto 33.6 % (25-40); Mean Corpuscular HGB Conc 34.3 % (30-36); Mean Corpuscular Hemoglobin 33.2 PG (26-34); Mean Corpuscular Volume 96.7 fL (80-100); Monocytes Absolute Auto 400 /uL (0-900); Monocytes Percent Auto 9.9 % (3-14); Neutrophils Absolute Auto 2500 /uL (1500-7000); Neutrophils Percent Auto 54.2 % (50-75); Platelet Count 177 X10^3/uL (150-400); Red Blood Cell Count 4.82 X10^6/uL (4.5-5.9); Red Cell Distribution Width 14.1 % (11.6-14.8); White Blood Cell Count 4.6 X10^3/uL (4.5-11.0)
[2025-04-20 17:33] LABS: Alanine Aminotransferase 80 IU/L (<50); Albumin 4.4 g/dL (3.5-5.0); Albumin Globulin Ratio 1.6 (1.0-2.8); Alkaline Phosphatase 74 U/L (38-126); Aspartate Aminotransferase 56 IU/L (17-59); BUN Creatinine Ratio 7.3 (6-22); Bilirubin Total 0.7 mg/dL (0.2-1.3); Blood Urea Nitrogen 6 mg/dL (9-20); Calcium 8.7 mg/dL (8.4-10.2); Carbon Dioxide 26 mmol/L (22-32); Chloride 102 mmol/L (98-107); Cholesterol 247 mg/dL (140-199); Estimated Glomerular Filt Rate > 60 mL/min (>60); Globulin 2.8 g/dL (1.7-4.1); Glucose 98 mg/dL (70-99); HDL Cholesterol 53 mg/dL (40-60); HEMOLYSIS < 15 (0-50); LDL Cholesterol Calculated 170 mg/dL (<100); Potassium 4.4 mmol/L (3.4-5.1); Sodium 136 mmol/L (137-145); Total Protein 7.2 g/dL (6.3-8.2); Triglycerides 121 mg/dL (35-150)
[2025-04-20 17:41] LABS: Hemoglobin A1C% w Est Avg Glu 4.9 % (4.0-6.0)
== END ==
PROVIDERS: PCP Family Medicine; Referring Provider Nurse Practitioner Psychiatric/Mental Health; Visit Provider Nurse Practitioner Psychiatric/Mental Health
DX: F25.1 Schizoaffective disorder, depressive type (principal); R79.89 Other specified abnormal findings of blood chemistry; I10 Essential (primary) hypertension; Z79.899 Other long term (current) drug therapy
CPT/HCPCS: 36415; 80053; 80061; 83036; 85025

== ENCOUNTER → 2025-05-04 15:04 | Outpatient (CLI) | payer MEDICARE, MEDICAID, SELFPAY ==
[2024-01-14 16:21] VITALS: BMI 27.6
--- NOTE | 2025-05-04 15:06 | DI.RAD.S_ITS ---
PROCEDURE: XR SHOULDER LT 3V INDICATIONS: Left shoulder pain x5 years per notes TECHNIQUE: 3 views of the shoulder were acquired. COMPARISON: No prior x-ray left shoulder available for comparison. FINDINGS: Mild degenerative changes of the left glenohumeral and acromioclavicular joints with mild joint space narrowing and small osteophytes. No radiographic evidence of displaced fracture, dislocation or high attenuation soft tissue foreign body. IMPRESSION: Mild degenerative changes. If symptoms persist or worsen, or there is high clinical suspicion of left shoulder abnormality, MRI could be performed. Dictated by: Mikal Romo M.D. on 05/05/2025 at 9:12 Approved by: Mikal Romo M.D. on 05/05/2025 at 9:16
== END ==
PROVIDERS: PCP Family Medicine; Referring Provider Family Medicine; Visit Provider Family Medicine
DX: M25.512 Pain in left shoulder (principal); G89.29 Other chronic pain
CPT/HCPCS: 73030

== ENCOUNTER → 2025-09-21 16:28 | Outpatient (CLI) | payer MEDICARE, MEDICAID, SELFPAY ==
[2024-01-14 16:21] VITALS: BMI 27.6
--- NOTE | 2025-09-21 16:30 | DI.RAD.S_ITS ---
P and ROCEDURE: XR LUMBAR SPINE 2-3V INDICATIONS: Progressive localized low back pain TECHNIQUE: 3 views of the lumbar spine were acquired. COMPARISON: [facility], CR, L-SPINE 2-3 VIEWS, 03/04/2017, 12:17. [facility], CR, L-SPINE 2-3 VIEWS, 04/07/2015, 21:25. FINDINGS: Bones: 5 nonrib-bearing vertebrae are present. No acute vertebral body compression fractures. Chronic T12 anterior wedge compression deformity. No suspicious bony lesions. Grade 1 L5 on S1 anterolisthesis due to bilateral pars defects. No significant scoliosis. Patient is status post posterior fusion at L2-3. Hardware is intact. [id number] L5-S1 disc narrowing. Facet sclerosis present at L4-5 and L5-S1. Soft tissues: Overlying bowel gas pattern is normal. No suspicious soft tissue calcifications. IMPRESSION: No acute fracture. No scoliosis. Grade 1 L5 on S1 anterolisthesis due to bilateral pars defects. Multilevel degenerative disc and facet arthropathy. Degenerative disc disease is most pronounced at L5-S1. Dictated by: Shruthi Alanis M.D. on 09/25/2025 at 18:31 Approved by: Shruthi Alanis M.D. on 09/25/2025 at 18:34
== END ==
PROVIDERS: PCP Family Medicine; Referring Provider Family Medicine; Visit Provider Family Medicine
DX: M51.369 Other intervertebral disc degeneration, lumbar region without mention of lumbar back pain or lower extremity pain (principal); M51.379 Other intervertebral disc degeneration, lumbosacral region without mention of lumbar back pain or lower extremity pain; M47.816 Spondylosis without myelopathy or radiculopathy, lumbar region; M47.817 Spondylosis without myelopathy or radiculopathy, lumbosacral region; M43.17 Spondylolisthesis, lumbosacral region; M43.8X4 Other specified deforming dorsopathies, thoracic region; M54.50 Low back pain, unspecified; E78.00 Pure hypercholesterolemia, unspecified; Z98.1 Arthrodesis status
CPT/HCPCS: 72100